=== PATIENT | female | born 1980 | race Caucasian/White ===

== ENCOUNTER 2018-01-09 19:41 | Emergency (ER) | payer BC ==
[2018-01-09 20:35] VITALS: BP 162/63
[2018-01-09] MEDS ORDERED: Ketorolac 60 MG/2 ML SDV IM ONE (20:47)
--- NOTE | 2018-01-09 20:48 | EDM.PDOC ---
ED HPI GENERAL MEDICAL PROBLEM - General Chief Complaint: Genitourinary Problem Stated Complaint: BLOOD IN URINE Time Seen by Provider: 01/09/18 20:40 Source of Information: Reports: Patient History Limitations: Reports: No Limitations - History of Present Illness INITIAL COMMENTS - FREE TEXT/NARRATIVE: HISTORY AND PHYSICAL: History of present illness: Patient is a 37-year-old female with complaints of dysuria, frequency, the sensation of being unable to fully empty her bladder and hematuria. She has had the symptoms for the last 2-3 days. She denies any fever, chills, chest pain, shortness of breath, nausea, vomiting, diarrhea or constipation. Review of systems: As per history of present illness and below otherwise all systems reviewed and negative. Past medical history: As per history of present illness and as reviewed below otherwise noncontributory. Surgical history: As per history of present illness and as reviewed below otherwise noncontributory. Social history: No reported history of drug or alcohol abuse. Family history: As per history of present illness and as reviewed below otherwise noncontributory. Physical exam: General: Developed and well-nourished 37-year-old female. Alert and oriented. Nontoxic appearing and in no acute distress. HEENT: Atraumatic, normocephalic, pupils equal and reactive bilaterally, negative for conjunctival pallor or scleral icterus, mucous membranes moist, throat clear, neck supple, nontender, trachea midline. No drooling or trismus noted. No meningeal signs Lungs: Clear to auscultation, breath sounds equal bilaterally, chest nontender. Heart: S1S2, regular rate and rhythm without overt murmur Abdomen: Soft, nondistended, nontender. Negative for masses or hepatosplenomegaly. Negative for costovertebral tenderness. Pelvis: Stable nontender. Genitourinary: Deferred. Rectal: Deferred. Skin: Intact, warm, dry. No lesions or rashes noted. Extremities: Atraumatic, negative for cords or calf pain. Neurovascular unremarkable. Neuro: Awake, alert, oriented. Cranial nerves II through XII unremarkable. Cerebellum unremarkable. Motor and sensory unremarkable throughout. Exam nonfocal. Notes: Patient does have some tenderness when pressing on the right side of the pelvic area I will get a CT to rule out a stone. I will treat her with Macrobid, Pyridium, and tramadol. CT shows no evidence of urinary tract colliculi or hydronephrosis. Diagnostics: UA, urine culture, CT abdomen and pelvis Therapeutics: IM Toradol Prescription: Macrobid twice a day 7 days Pyridium 3 times a day 2 days Tramadol (#15) Impression: UTI Plan: 1. Please take the medications as directed. 2. Increase your oral fluids. Tylenol and/or ibuprofen as needed for pain management.Tramadol as needed for moderate to sever pain. May cause drowsiness, so do not take while driving or needing to be functioning outside the house 3. Follow-up with your primary care provider in the next 1-2 days. Return to the ED as needed and as discussed. Definitive disposition and diagnosis as appropriate pending reevaluation and review of above. pelvic area Pain Score (Numeric/FACES): 10 - Related Data Allergies Allergy/AdvReac Type Severity Reaction Status Date / Time esomeprazole magnesium Allergy Mild Abdominal Verified 01/09/18 20:09 [From Nexium] Cramps Home Meds: Home Meds . 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: Musculoskeletal History: Reports: Neck Pain, Chronic Neurological History: Reports: Brain Injury, Concussion Psychiatric History: Reports: Anxiety, Depression Endocrine/Metabolic History: Reports: Osteoporosis, Other (See Below) Other Endocrine/Metabolic History: ovarian failure - Infectious Disease History Infectious Disease History: Reports: Chicken Pox - Past Surgical History HEENT Surgical History: Reports: Tonsillectomy GI Surgical History: Reports: Cholecystectomy, Hernia, Abdominal Female Surgical History: Reports: Section, Tubal Ligation Social & Family History - Tobacco Use Smoking Status *Q: Former Smoker Used Tobacco, but Quit: Yes Month/Year Tobacco Last Used: 2014 - Caffeine Use Caffeine Use: Reports: Tea - Recreational Drug Use Recreational Drug Use: No - Living Situation & Occupation Living situation: Reports: , with Family Occupation: Employed ED ROS GENERAL - Review of Systems Review Of Systems: ROS reveals no pertinent complaints other than HPI. ED EXAM, RENAL/ - Physical Exam Exam: See Below (See dictation) Course - Vital Signs Last Recorded V/S: Last Vital Signs Temp 97.8 F 01/09/18 20:07 Pulse 76 08/11/18 20:07 Resp 12 01/09/18 20:07 BP 162/63 H 01/09/18 20:34 Pulse Ox 97 01/09/18 20:07 - Orders/Labs/Meds Orders: Active Orders 24 hr Category Date Time Status Abdomen Pelvis wo Cont [CT] Stat Exams 01/09/18 20:46 Taken CULTURE URINE [RM] Stat Lab 01/09/18 19:55 Received Labs: Laboratory Tests 01/09/18 Range/Units 19:55 Urine Color YELLOW Urine Appearance BLOODY Urine pH 6.0 (5.0-8.0) Ur Specific [place] >= 1.030 (1.001-1.035) Urine Protein 100 (NEGATIVE) mg/dL Urine Glucose (UA) NEGATIVE (NEGATIVE) mg/dL Urine Ketones NEGATIVE (NEGATIVE) mg/dL Urine Occult Blood LARGE H (NEGATIVE) Urine Nitrite NEGATIVE (NEGATIVE) Urine Bilirubin NEGATIVE (NEGATIVE) Urine Urobilinogen 0.2 (<2.0) EU/dL Ur Leukocyte Esterase NEGATIVE (NEGATIVE) Urine RBC TOO NUMEROUS TO CT H (0-2/HPF) Urine WBC 1-2 (0-5/HPF) Ur Epithelial Cells FEW (NONE-FEW) Urine Bacteria FEW (NEGATIVE) Meds: Medications Discontinued Medications Generic Name Dose Route Start Last Admin Trade Name Ricardo PRN Reason Stop Dose Admin Ketorolac Tromethamine 60 mg 01/09/18 20:47 01/09/18 21:00 Toradol IM 01/09/18 20:48 60 mg ONETIME ONE Administration Phenazopyridine HCl 200 mg 01/09/18 20:50 01/09/18 21:00 Pyridium PO 01/09/18 20:51 200 mg ONETIME ONE Administration Departure - Departure Time of Disposition: 21:44 Disposition: Home, Self-Care 01 Clinical Impression: UTI, Urinary tract infectious disease - Discharge Information Instructions: Urinary Tract Infection, Adult, [id number] Referrals: PCP,None [Primary Care Provider] - Forms: ED Department Discharge Additional Instructions: The following information is given to patients seen in the emergency department who are being discharged to home. This information is to outline your options for follow-up care. We provide all patients seen in our emergency department with a follow-up referral. The need for follow-up, as well as the timing and circumstances, are variable depending upon the specifics of your emergency department visit. If you don't have a primary care physician on staff, we will provide you with a referral. We always advise you to contact your personal physician following an emergency department visit to inform them of the circumstance of the visit and for follow-up with them and/or the need for any referrals to a consulting specialist. The emergency department will also refer you to a specialist when appropriate. This referral assures that you have the opportunity for follow-up care with a specialist. All of these measure are taken in an effort to provide you with optimal care, which includes your follow-up. Under all circumstances we always encourage you to contact your private physician who remains a resource for coordinating your care. When calling for follow-up care, please make the office aware that this follow-up is from your recent emergency room visit. If for any reason you are refused follow-up, please contact the [facility] Emergency Department at and asked to speak to the emergency department charge nurse. [facility] [address] [place] [id number] 1. Please take the medications as directed. 2. Increase your oral fluids. Tylenol and/or ibuprofen as needed for pain management. Tramadol as needed for moderate to sever pain. May cause drowsiness , so do not take while driving or needing to be functioning outside the house 3. Follow-up with your primary care provider in the next 1-2 days. Return to the ED as needed and as discussed. - My Orders Last 24 Hours: My Active Orders 01/09/18 20:46 Abdomen Pelvis wo Cont [CT] Stat - Assessment/Plan Last 24 Hours: My Active Orders 01/09/18 20:46 Abdomen Pelvis wo Cont [CT] Stat
[2018-01-09] MEDS ORDERED: Phenazopyridine 200 MG Tab PO ONE (20:50)
[2018-01-09] MEDS ORDERED: Nitrofurantoin Monohydrate/Macrocrystalline 100 MG Cap PO ONE (21:46)
--- NOTE | 2018-01-11 17:38 | CT ---
EXAM DATE: 01/09/18 PATIENT'S AGE: 37 Patient: JOVITA MALCOLM Facility: [place], [place] Site . Site : [id number] Study: CT Abdomen/Pelvis [id number]/11/2018 9:15:11 PM Ordering Physician: Doctor Kaye Final Report: HISTORY: Abdominal pain. Hematuria. TECHNIQUE: CT abdomen and pelvis without contrast. COMPARISON: None. FINDINGS: Urinary system: No urinary tract calculi. No hydronephrosis or perinephric stranding. Abdomen: Cholecystectomy. Unenhanced liver, pancreas, spleen, and adrenal glands are unremarkable. Small calcification along the posteromedial margin of the right lobe of the liver. No dilated bowel. Appendix is normal. No free fluid. No free intraperitoneal gas. No lymphadenopathy. Mild atherosclerosis. No abdominal aortic aneurysm. Pelvis: No free fluid. No lymphadenopathy. Musculoskeletal: Unremarkable. Lower chest: Unremarkable. IMPRESSION: No acute findings in the abdomen or pelvis. No urinary tract calculi. Please note that all CT scans at this facility use dose modulation, iterative reconstruction, and/or weight-based dosing when appropriate to reduce radiation dose to as low as reasonably achievable. Dictated by Tien Mabry MD @ Jan 09 2018 9:36PM (Electronic Signature) Report Signed by Proxy. SUSAND
== END 2018-01-09 22:15 | disposition home or self-care (01) ==
LOC: MW.ED 19:41
DX: N39.0 Urinary tract infection, site not specified (principal); K21.9 Gastro-esophageal reflux disease without esophagitis; F41.9 Anxiety disorder, unspecified; F32.9 Major depressive disorder, single episode, unspecified; Z87.891 Personal history of nicotine dependence; Z88.8 Allergy status to other drugs, medicaments and biological substances
CPT/HCPCS: 74176; 81001; 87086; 87088; 87186; 96372; 99284; A9270; J1885

== ENCOUNTER 2018-09-03 13:54 | Emergency (ER) | payer BC ==
[2018-09-03] MEDS ORDERED: Sodium Chloride 0.9% 1,000 ML IV ONE (14:11)
--- NOTE | 2018-09-03 14:39 | EDM.PDOC ---
ED HPI GENERAL MEDICAL PROBLEM - General Chief Complaint: General Stated Complaint: fall Time Seen by Provider: 09/03/18 13:55 Source of Information: Reports: Patient History Limitations: Reports: No Limitations - History of Present Illness INITIAL COMMENTS - FREE TEXT/NARRATIVE: HISTORY AND PHYSICAL: History of present illness: Patient is a 38-year-old female who presents to the ED today with concern of syncope that occurred just minutes prior to arrival to the ED. 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 Patient is unsure if she hit her head but she says she does have a scrape to her right knee. Patient states currently the ED she feels a little lightheaded and dizzy which is worse when she sits up or stands up. Patient states the scrape on her knee hurts but she has full range of motion of her knee. Patient denies any other injuries that are bothersome in the ED. Patient denies fever, chills, chest pain, shortness of breath, or cough. Denies headache, neck stiff ness, change in vision. Denies nausea, vomiting, abdominal pain, diarrhea, constipation, or dysuria. Has not noted any blood in urine or stool. Patient has been eating and drinking appropriately. Patient has a history of ovarian failure but denies any other health history. Review of systems: As per history of present illness and below otherwise all systems reviewed and negative. Past medical history: As per history of present illness and as reviewed below otherwise noncontributory. Surgical history: As per history of present illness and as reviewed below otherwise noncontributory. Social history: See social history for further information Family history: As per history of present illness and as reviewed below otherwise noncontributory. Physical exam: General: Patient is alert, oriented, and in no acute distress. She is lying comfortably on exam table. HEENT: Atraumatic, normocephalic, pupils equal and reactive bilaterally, negative for conjunctival pallor or scleral icterus, mucous membranes moist, TMs normal bilaterally, throat clear, neck supple, nontender, trachea midline. No drooling or trismus noted. No meningeal signs. No hot potato voice noted. EOM intact. Lungs: Clear to auscultation, breath sounds equal bilaterally, chest nontender. Heart: S1S2, regular rate and rhythm without overt murmur Abdomen: Soft, nondistended, nontender. Negative for masses or hepatosplenomegaly. Negative for costovertebral tenderness. Pelvis: Stable nontender. Genitourinary: Deferred. Rectal: Deferred. Skin: There is an abrasion about the size of a quarter on the right knee with minimal blood loss. Extremities: Atraumatic, negative for cords or calf pain. Neurovascular unremarkable. Patient has full range of motion of knees bilaterally. Dorsalis pedis and posterior tibial pulses are grossly intact. Capillary refill less than 2 seconds. No obvious deformities noted of the knees bilaterally. Neuro: Awake, alert, oriented. Cranial nerves II through XII unremarkable. Cerebellum unremarkable. Motor and sensory unremarkable throughout. Exam nonfocal. Notes: Will do labwork and imaging today. Patient declines imaging to her knee. Head CT shows no acute intracranial abnormalities. Results shared and discussed with patient. Patient states she normally feels dizzy following administration of saline. Offered admission for observation but patient declines. Supportive care measures were reviewed and discussed. Voices understanding and is agreeable to plan of care. Denies any further questions or concerns at this time. Diagnostics: CBC, CMP, EKG, UA, orthostatic vitals, head CT Therapeutics: Saline Prescription: None Impression: Syncope, unspecified Knee injury, right Plan: 1. Encourage frequent sips of fluids to prevent dehydration. You can alternate ibuprofen and Tylenol as directed for pain and discomfort. 2. Follow-up with your primary care provider as discussed. 3. Return to the ED as needed and as discussed. Definitive disposition and diagnosis as appropriate pending reevaluation and review of above. right knee Pain Score (Numeric/FACES): 5 - Related Data Allergies Allergy/AdvReac Type Severity Reaction Status Date / Time esomeprazole magnesium Allergy Mild Abdominal Verified 01/09/18 20:09 [From Nexium] Cramps Home Meds: Home Meds Cholecalciferol (Vitamin D3) [Vitamin D] 5,000 unit PO DAILY 09/03/18 [History] Citalopram [Citalopram HBr] 20 mg PO DAILY 09/03/18 [History] Cyanocobalamin (Vitamin B-12) [B-12 Compliance] 1 mcg IM ASDIRECTED 09/03/18 [ History] Estradiol [Climara] 0.05 mg TOP WEEKLY 09/03/18 [History] Multivit with Calcium,Iron,Min [One Daily Women's] 1 tab PO DAILY 09/03/18 [ History] Multivit with Iron,Minerals [Spectravite Senior] 09/03/18 [History] Omeprazole 40 mg PO DAILY 09/03/18 [History] Progesterone,Micronized [Progesterone] 100 mg PO DAILY 09/03/18 [History] Past Medical History Other HEENT History: TMJ Respiratory History: Reports: Asthma Gastrointestinal History: Reports: GERD Genitourinary History: Reports: Other (See Below) 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: , Other (See Below) 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 Musculoskeletal History: Reports: Neck Pain, Chronic Neurological History: Reports: Brain Injury, Concussion Psychiatric History: Reports: Anxiety, Depression Endocrine/Metabolic History: Reports: Osteoporosis, Other (See Below) Other Endocrine/Metabolic History: ovarian failure - Infectious Disease History Infectious Disease History: Reports: Chicken Pox - Past Surgical History HEENT Surgical History: Reports: Tonsillectomy GI Surgical History: Reports: Cholecystectomy, Colonoscopy, EGD, Hernia, Abdominal Female Surgical History: Reports: Section, Tubal Ligation Social & Family History - Family History Family Medical History: Noncontributory - Tobacco Use Smoking Status *Q: Never Smoker - Caffeine Use Caffeine Use: Reports: Tea - Recreational Drug Use Recreational Drug Use: No - Living Situation & Occupation Living situation: Reports: , with Family Occupation: Employed ED ROS GENERAL - Review of Systems Review Of Systems: ROS reveals no pertinent complaints other than HPI. ED EXAM, GENERAL - Physical Exam Exam: See Below (see dictation) Course - Vital Signs Last Recorded V/S: Last Vital Signs Temp 36.6 C 09/03/18 14:04 Pulse 80 09/03/18 14:04 Resp 18 09/03/18 14:04 BP 127/79 09/03/18 14:04 Pulse Ox 96 09/03/18 14:04 Orthostatic Blood Pressure [ 119/72 Standing] Orthostatic Blood Pressure [ 132/73 Sitting] Orthostatic Blood Pressure [ 124/74 Supine] - Orders/Labs/Meds Orders: Active Orders 24 hr Category Date Time Status EKG Documentation Completion [RC] STAT Care 09/03/18 14:11 Active Orthostatic Vital Signs [RC] ASDIRECTED Care 09/03/18 14:11 Active Labs: Laboratory Tests 09/03/18 09/03/18 09/03/18 Range/Units 14:31 14:31 15:12 WBC 9.41 (4.0-11.0) K/uL RBC 4.38 (4.30-5.90) M/uL Hgb 13.8 (12.0-16.0) g/dL Hct 39.4 (36.0-46.0) % MCV 90.0 (80.0-98.0) fL MCH 31.5 (27.0-32.0) pg MCHC 35.0 (31.0-37.0) g/dL RDW Std Deviation 39.4 (28.0-62.0) fl RDW Coeff of Crystal 12 (11.0-15.0) % Plt Count 290 (150-400) K/uL MPV 10.10 (7.40-12.00) fL Neut % (Auto) 67.6 (48.0-80.0) % Lymph % (Auto) 19.9 (16.0-40.0) % [place]ke % (Auto) 11.8 (0.0-15.0) % Eos % (Auto) 0.5 (0.0-7.0) % Baso % (Auto) 0.2 (0.0-1.5) % Neut # (Auto) 6.4 H (1.4-5.7) K/uL Lymph # (Auto) 1.9 (0.6-2.4) K/uL [place] # (Auto) 1.1 H (0.0-0.8) K/uL Eos # (Auto) 0.1 (0.0-0.7) K/uL Baso # (Auto) 0.0 (0.0-0.1) K/uL Nucleated RBC % 0.0 /100WBC Nucleated RBCs # 0 K/uL Sodium 141 (136-145) mmol/L Potassium 3.6 (3.5-5.1) mmol/L Chloride 103 (98-107) mmol/L Carbon Dioxide 29.3 (21.0-32.0) mmol/L BUN 16 (7.0-18.0) mg/dL Creatinine 0.9 (0.6-1.0) mg/dL Est Cr Clr Drug Dosing 63.95 mL/min Estimated GFR (MDRD) > 60.0 ml/min Glucose 108 H (74-106) mg/dL Calcium 8.9 (8.5-10.1) mg/dL Total Bilirubin 1.1 H (0.2-1.0) mg/dL AST 14 L (15-37) IU/L ALT 27 (14-63) IU/L Alkaline Phosphatase 63 (46-116) U/L Total Protein 7.5 (6.4-8.2) g/dL Albumin 3.7 (3.4-5.0) g/dL Globulin 3.8 (2.6-4.0) g/dL Albumin/Globulin Ratio 1.0 (0.9-1.6) Urine Color YELLOW Urine Appearance CLEAR Urine pH 6.0 (5.0-8.0) Ur Specific [place] 1.025 (1.001-1.035) Urine Protein NEGATIVE (NEGATIVE) mg/dL Urine Glucose (UA) NEGATIVE (NEGATIVE) mg/dL Urine Ketones NEGATIVE (NEGATIVE) mg/dL Urine Occult Blood NEGATIVE (NEGATIVE) Urine Nitrite NEGATIVE (NEGATIVE) Urine Bilirubin NEGATIVE (NEGATIVE) Urine Urobilinogen 0.2 (<2.0) EU/dL Ur Leukocyte Esterase NEGATIVE (NEGATIVE) Meds: Medications Discontinued Medications Generic Name Dose Route Start Last Admin Trade Name Ricardo PRN Reason Stop Dose Admin Sodium Chloride 1,000 mls @ 999 mls/hr 09/03/18 14:11 09/03/18 14:40 Normal Saline IV 09/03/18 15:11 999 mls/hr STAT ONE Administration Departure - Departure Time of Disposition: 15:49 Disposition: Home, Self-Care 01 Clinical Impression: Syncope Qualifiers: Syncope type: unspecified Qualified Code(s): R55 - Syncope and collapse - Discharge Information Instructions: Syncope, [id number] Referrals: PCP,Unknown [Primary Care Provider] - Forms: ED Department Discharge Additional Instructions: The following information is given to patients seen in the emergency department who are being discharged to home. This information is to outline your options for follow-up care. We provide all patients seen in our emergency department with a follow-up referral. The need for follow-up, as well as the timing and circumstances, are variable depending upon the specifics of your emergency department visit. If you don't have a primary care physician on staff, we will provide you with a referral. We always advise you to contact your personal physician following an emergency department visit to inform them of the circumstance of the visit and for follow-up with them and/or the need for any referrals to a consulting specialist. The emergency department will also refer you to a specialist when appropriate. This referral assures that you have the opportunity for follow-up care with a specialist. All of these measure are taken in an effort to provide you with optimal care, which includes your follow-up. Under all circumstances we always encourage you to contact your private physician who remains a resource for coordinating your care. When calling for follow-up care, please make the office aware that this follow-up is from your recent emergency room visit. If for any reason you are refused follow-up, please contact the [facility] Emergency Department at and asked to speak to the emergency department charge nurse. [facility] [address] [place] [id number] [facility] [address] [place] [address] 1. Encourage frequent sips of fluids to prevent dehydration. You can alternate ibuprofen and Tylenol as directed for pain and discomfort. 2. Follow-up with your primary care provider as discussed. 3. Return to the ED as needed and as discussed. - My Orders Last 24 Hours: My Active Orders 09/03/18 14:11 EKG Documentation Completion [RC] STAT Orthostatic Vital Signs [RC] ASDIRECTED - Assessment/Plan Last 24 Hours: My Active Orders 09/03/18 14:11 EKG Documentation Completion [RC] STAT Orthostatic Vital Signs [RC] ASDIRECTED
--- NOTE | 2018-09-03 14:50 | CT ---
EXAMINATION: Non contrast CT head. Coronal and sagittal reformats. HISTORY: Pain FINDINGS: No evidence of intra or extra axial hemorrhage, mass, midline shift, hydrocephalus or edema. No hypoattenuation changes in the major vascular territories to suggest acute infarct. No abnormal intracranial calcifications are detected. No evidence of substantial vascular calcifications. Paranasal sinuses and mastoid air cells are well aerated without substantial findings. Pituitary fossa appears unremarkable. The orbits and globes are symmetric. Calvarium is intact. No evidence of skull fracture. IMPRESSION: No acute intracranial findings.
[2018-09-03 15:15] LABS: CHLORIDE,CL 103 mmol/L (98-107); SODIUM,NA 141 mmol/L (136-145)
[2018-09-03 18:45] VITALS: BP 122/65
== END 2018-09-03 16:05 | disposition home or self-care (01) ==
LOC: MW.ED 13:54
DX: S80.211A Abrasion, right knee, initial encounter (principal); R55 Syncope and collapse; J45.909 Unspecified asthma, uncomplicated; K21.9 Gastro-esophageal reflux disease without esophagitis; F41.9 Anxiety disorder, unspecified; F32.9 Major depressive disorder, single episode, unspecified; Z88.8 Allergy status to other drugs, medicaments and biological substances; Z79.899 Other long term (current) drug therapy; W18.39XA Other fall on same level, initial encounter
CPT/HCPCS: 36415; 70450; 80053; 81003; 85025; 93005; J7040; 96360; 99285-25

== ENCOUNTER 2018-09-05 13:27 | Emergency (ER) | payer BC ==
--- NOTE | 2018-09-05 15:33 | EDM.PDOC ---
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 She was evaluated by Dr. Pari Lovett pelvic exam and ultrasound which were both negative. Patient Feels very weak and tired Review of systems: As per history of present illness and below otherwise all systems reviewed and negative. Past medical history: As per history of present illness and as reviewed below otherwise noncontributory. Surgical history: As per history of present illness and as reviewed below otherwise noncontributory. Social history: No reported history of drug or alcohol abuse. Family history: As per history of present illness and as reviewed below otherwise noncontributory. Physical exam: General: Well developed, well nourished in NAD HEENT: Atraumatic, normocephalic, pupils reactive, negative for conjunctival pallor or scleral icterus, mucous membranes moist, throat clear, neck supple, nontender, trachea midline. Lungs: Clear to auscultation, breath sounds equal bilaterally, chest nontender. Heart: S1S2, regular, negative for clicks, rubs, or JVD. Abdomen: NABS, Soft, nondistended, nontender. Negative for masses or hepatosplenomegaly. Negative for costovertebral tenderness. Pelvis: Stable nontender. Genitourinary: Deferred. Rectal: Deferred. Extremities: Atraumatic, negative for cords or calf pain. Neurovascular unremarkable. Neuro: Awake, alert, oriented. Cranial nerves II through XII unremarkable. Cerebellum unremarkable. Motor and sensory unremarkable throughout. Exam nonfocal. Skin:warm and dry Diagnostics: CBC, UA Therapeutics: None ED Course: stable Impression: yeast infection Prescriptions: diflucan Plan: Take meds as directed, follow up with your primary care physician, return to ER if symptoms worsen or change. Definitive disposition and diagnosis as appropriate pending reevaluation and review of above. Pelvic Pain Score (Numeric/FACES): 6 - Related Data Allergies Allergy/AdvReac Type Severity Reaction Status Date / Time esomeprazole magnesium Allergy Mild Abdominal Verified 09/05/18 14:21 [From Nexium] Cramps Home Meds: Home Meds Cholecalciferol (Vitamin D3) [Vitamin D] 5,000 unit PO DAILY 09/03/18 [History] Citalopram [Citalopram HBr] 20 mg PO DAILY 09/03/18 [History] Cyanocobalamin (Vitamin B-12) [B-12 Compliance] 1 mcg IM ASDIRECTED 09/03/18 [ History] Estradiol [Climara] 0.05 mg TOP WEEKLY 09/03/18 [History] Multivit with Calcium,Iron,Min [One Daily Women's] 1 tab PO DAILY 09/03/18 [ History] Multivit with Iron,Minerals [Spectravite Senior] 1 tab PO DAILY 09/03/18 [ History] Omeprazole 40 mg PO DAILY 09/03/18 [History] Progesterone,Micronized [Progesterone] 100 mg PO DAILY 09/03/18 [History] Fluconazole [Diflucan] 150 mg PO ONETIME #1 tab 09/05/18 [Rx] Past Medical History Other HEENT History: TMJ Respiratory History: Reports: Asthma Gastrointestinal History: Reports: GERD Genitourinary History: Reports: Other (See Below) 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 PADDER History: Reports: , Other (See Below) Other SIDE PANEL PADDER History: c-sections Musculoskeletal History: Reports: Neck Pain, Chronic Neurological History: Reports: Brain Injury, Concussion Psychiatric History: Reports: Anxiety, Depression Endocrine/Metabolic History: Reports: Osteoporosis, Other (See Below) Other Endocrine/Metabolic History: ovarian failure - Infectious Disease History Infectious Disease History: Reports: Chicken Pox - Past Surgical History HEENT Surgical History: Reports: Tonsillectomy GI Surgical History: Reports: Cholecystectomy, Colonoscopy, EGD, Hernia, Abdominal Female Surgical History: Reports: Section, Tubal Ligation Social & Family History - Family History Family Medical History: Noncontributory - Tobacco Use Smoking Status *Q: Former Smoker Used Tobacco, but Quit: Yes Month/Year Tobacco Last Used: 2013 - Caffeine Use Caffeine Use: Reports: Coffee - Recreational Drug Use Recreational Drug Use: No - Living Situation & Occupation Living situation: Reports: , with Family Occupation: Employed ED ROS GENERAL - Review of Systems Review Of Systems: ROS reveals no pertinent complaints other than HPI. ED EXAM, RENAL/ - Physical Exam Exam: See Below (See history of present illness) Course - Vital Signs Last Recorded V/S: Last Vital Signs Temp 98.4 F 09/05/18 14:22 Pulse 102 H 09/05/18 14:22 Resp 18 09/05/18 14:22 BP 163/91 H 09/05/18 14:22 Pulse Ox 98 09/05/18 14:22 - Orders/Labs/Meds Labs: Laboratory Tests 09/05/18 09/05/18 09/05/18 Range/Units 14:26 14:26 15:49 WBC 9.05 (4.0-11.0) K/uL RBC 4.26 L (4.30-5.90) M/uL Hgb 13.4 (12.0-16.0) g/dL Hct 38.6 (36.0-46.0) % MCV 90.6 (80.0-98.0) fL MCH 31.5 (27.0-32.0) pg MCHC 34.7 (31.0-37.0) g/dL RDW Std Deviation 40.0 (28.0-62.0) fl RDW Coeff of Crystal 12 (11.0-15.0) % Plt Count 267 (150-400) K/uL MPV 9.90 (7.40-12.00) fL Neut % (Auto) 62.4 (48.0-80.0) % Lymph % (Auto) 26.2 (16.0-40.0) % [place] % (Auto) 10.4 (0.0-15.0) % Eos % (Auto) 0.8 (0.0-7.0) % Baso % (Auto) 0.2 (0.0-1.5) % Neut # (Auto) 5.7 (1.4-5.7) K/uL Lymph # (Auto) 2.4 (0.6-2.4) K/uL [place] # (Auto) 0.9 H (0.0-0.8) K/uL Eos # (Auto) 0.1 (0.0-0.7) K/uL Baso # (Auto) 0.0 (0.0-0.1) K/uL Nucleated RBC % 0.0 /100WBC Nucleated RBCs # 0 K/uL Urine Color YELLOW Urine Appearance CLEAR Urine pH 7.0 (5.0-8.0) Ur Specific [place] 1.020 (1.001-1.035) Urine Protein NEGATIVE (NEGATIVE) mg/dL Urine Glucose (UA) NEGATIVE (NEGATIVE) mg/dL Urine Ketones NEGATIVE (NEGATIVE) mg/dL Urine Occult Blood LARGE H (NEGATIVE) Urine Nitrite NEGATIVE (NEGATIVE) Urine Bilirubin NEGATIVE (NEGATIVE) Urine Urobilinogen 0.2 (<2.0) EU/dL Ur Leukocyte Esterase NEGATIVE (NEGATIVE) Urine RBC 0-3 (0-2/HPF) Urine WBC 0-1 (0-5/HPF) Ur Epithelial Cells MODERATE (NONE-FEW) Urine Bacteria FEW (NEGATIVE) Urine Yeast MODERATE Urine HCG, Qual NEGATIVE (NEGATIVE) Departure - Departure Time of Disposition: 16:09 Disposition: Home, Self-Care 01 Condition: Good Clinical Impression: Yeast infection - Discharge Information *PRESCRIPTION DRUG MONITORING PROGRAM REVIEWED*: No *COPY OF PRESCRIPTION DRUG MONITORING REPORT IN PATIENT LUCIA: No Prescriptions: Fluconazole [Diflucan] 150 mg PO ONETIME #1 tab Referrals: Evert Drew MD [Primary Care Provider] - Forms: ED Department Discharge Additional Instructions: The following information is given to patients seen in the emergency department who are being discharged to home. This information is to outline your options for follow-up care. We provide all patients seen in our emergency department with a follow-up referral. The need for follow-up, as well as the timing and circumstances, are variable depending upon the specifics of your emergency department visit. If you don't have a primary care physician on staff, we will provide you with a referral. We always advise you to contact your personal physician following an emergency department visit to inform them of the circumstance of the visit and for follow-up with them and/or the need for any referrals to a consulting specialist. The emergency department will also refer you to a specialist when appropriate. This referral assures that you have the opportunity for follow-up care with a specialist. All of these measure are taken in an effort to provide you with optimal care, which includes your follow-up. Under all circumstances we always encourage you to contact your private physician who remains a resource for coordinating your care. When calling for follow-up care, please make the office aware that this follow-up is from your recent emergency room visit. If for any reason you are refused follow-up, please contact the [facility] Emergency Department at and asked to speak to the emergency department charge nurse. Take meds as directed, follow up with your primary care physician, return to ER if symptoms worsen or change. [facility] [address] [place] [id number]
[2018-09-05 18:00] VITALS: BP 120/60
== END 2018-09-05 16:48 | disposition home or self-care (01) ==
LOC: MW.ED 13:27
DX: B37.9 Candidiasis, unspecified (principal); J45.909 Unspecified asthma, uncomplicated; K21.9 Gastro-esophageal reflux disease without esophagitis; F41.9 Anxiety disorder, unspecified; F32.9 Major depressive disorder, single episode, unspecified; Z87.891 Personal history of nicotine dependence; Z88.8 Allergy status to other drugs, medicaments and biological substances; Z79.899 Other long term (current) drug therapy
CPT/HCPCS: 36415; 81001; 81025; 85025; 99284

== ENCOUNTER 2018-10-12 07:44 | Day surgery (SDC) | payer BC ==
[~2018-10-12 07:44] MED LIST: Dexamethasone 4 MG/ML 5 ML MDV ONE; Glycopyrrolate 0.2 MG/ML SDV ONE; Midazolam 1 MG/ML 2 ML SDV ONE; Neostigmine Methylsulfate 1 MG/ML 5 ML Syringe ONE; Ondansetron 4 MG/2 ML SDV ONE; Propofol 200 MG/20 ML SDV ONE; Rocuronium 100 MG/10 ML Syringe ONE; ceFAZolin/Dextrose,Iso-Osmotic 2 GM/50 ML Duplex Bag IV ONE; fentaNYL 250 MCG/5 ML SDV ONE
[2018-10-12] MEDS ORDERED: Methylene Blue 50 MG/10 ML Ampule ONE (07:47)
[2018-10-12] MEDS ORDERED: Bupivacaine 0.25% 10 ML SDV ONE (07:48)
[2018-10-12] MEDS ORDERED: Scopolamine 1.5 MG Transdermal Patch TRDERM PRN (08:28)
--- NOTE | 2018-10-12 08:31 | PCM.PREANE ---
Preanesthetic Assessment - Anesthesia/Transfusion/Family Hx Anesthesia History: Prior Anesthesia Without Reaction Family History of Anesthesia Reaction: No Transfusion History: No Prior Transfusion(s) - Review of Systems General: No Symptoms Pulmonary: No Symptoms Cardiovascular: No Symptoms Gastrointestinal: No Symptoms Neurological: No Symptoms Other: Reports: None - Physical Assessment O2 Sat by Pulse Oximetry: 97 Respiratory Rate: 16 Vital Signs: Last Vital Signs Temp 96.8 F 10/12/18 08:01 Pulse 88 10/12/18 08:01 Resp 16 10/12/18 08:01 BP 126/77 10/12/18 08:01 Pulse Ox 97 10/12/18 08:01 Height: 5 ft 2 in Weight: 70.307 kg ASA Class: 2 Mental Status: Alert & Oriented x3 Airway Class: Mallampati = 2 Dentition: Reports: Normal Dentition ROM/Head Extension: Full Lungs: Clear to Auscultation, Normal Respiratory Effort Cardiovascular: Regular Rate, Regular Rhythm - Allergies Allergies/Adverse Reactions: Allergies Allergy/AdvReac Type Severity Reaction Status Date / Time esomeprazole magnesium Allergy Mild Abdominal Verified 10/12/18 08:10 [From Nexium] Cramps - Blood Blood Available: No - Anesthesia Plan Pre-Op Medication Ordered: Other (sscop patch) - Acknowledgements Anesthesia Type Planned: General Anesthesia Pt an Appropriate Candidate for the Planned Anesthesia: Yes Alternatives and Risks of Anesthesia Discussed w Pt/Guardian: Yes Pt/Guardian Understands and Agrees with Anesthesia Plan: Yes Additional Comments: PMH: asthma-inactive recently, migraines- used tramadol prn, gerd- last used PPi this am, Hb 13.4 PLAN: GET PreAnesthesia Questionnaire HEENT History: Reports: Other (See Below) Other HEENT History: TMJ Cardiovascular History: Reports: None Respiratory History: Reports: Asthma Other Respiratory History: "asthma in the past" Gastrointestinal History: Reports: GERD Genitourinary History: Reports: UTI, Recurrent HEMODIALYSIS PATIENT CARE SPECIALIST History: Reports: Musculoskeletal History: Reports: Back Pain, Chronic, Neck Pain, Chronic Neurological History: Reports: Concussion, Migraines Psychiatric History: Reports: Anxiety, Depression Endocrine/Metabolic History: Reports: Osteopenia, Other (See Below) Other Endocrine/Metabolic History: hx thyroid nodule-biopsy negative Hematologic History: Reports: Anemia Immunologic History: Reports: None Oncologic (Cancer) History: Reports: None Dermatologic History: Reports: None - Infectious Disease History Infectious Disease History: Reports: Chicken Pox - Past Surgical History Head Surgeries/Procedures: Reports: None HEENT Surgical History: Reports: Adenoidectomy, Tonsillectomy Respiratory Surgical History: Reports: None GI Surgical History: Reports: Cholecystectomy, Colonoscopy, EGD, Hernia, Abdominal Female Surgical History: Reports: Section, Tubal Ligation Other Female Surgeries/Procedures: laparoscopy x2 Endocrine Surgical History: Reports: None Neurological Surgical History: Reports: None Musculoskeletal Surgical History: Reports: None Oncologic Surgical History: Reports: None Dermatological Surgical History: Reports: None - SUBSTANCE USE Smoking Status *Q: Former Smoker Tobacco Use Within Last Twelve Months: No Recreational Drug Use History: No - HOME MEDS Home Medications: Home Meds Cyanocobalamin (Vitamin B-12) [B-12 Compliance] 1 injection IM ASDIRECTED [History] Estradiol [Climara] 1 patch TRDERM WEEKLY 09/03/18 [History] Omeprazole 40 mg PO DAILY 09/03/18 [History] Progesterone,Micronized [Progesterone] 100 mg PO BEDTIME 09/03/18 [History] Ergocalciferol (Vitamin D2) [Vitamin D2] 50,000 units PO WEEKLY 10/07/18 [ History] Ibuprofen 1 tab PO TID PRN 10/07/18 [History] Multivitamin [Multivitamins] 1 tab PO DAILY 10/07/18 [History] Naproxen 1 tab PO ASDIRECTED PRN 10/07/18 [History] traMADol HCl [Tramadol HCl] 50 mg PO ASDIRECTED PRN 10/07/18 [History] - CURRENT (IN HOUSE) MEDS Current Meds: Current Medications Scopolamine (Transderm-Scop) 1.5 mg TRDERM Q72H PRN PRN Reason: Nausea/Vomiting Discontinued Medications Bupivacaine HCl (Sensorcaine-Mpf 0.25%) Confirm Administered Dose 20 ml .ROUTE .STK-MED ONE Stop: 10/12/18 07:49 Cefazolin Sodium/Dextrose (Ancef) Confirm Administered Dose 2 gm IV .STK-MED ONE Stop: 10/12/18 07:10 Dexamethasone (Dexamethasone) Confirm Administered Dose 20 mg .ROUTE .STK-MED ONE Stop: 10/12/18 07:20 Fentanyl (Sublimaze) Confirm Administered Dose 250 mcg .ROUTE .STK-MED ONE Stop: 10/12/18 07:11 Glycopyrrolate (Robinul) Confirm Administered Dose 0.6 mg .ROUTE .STK-MED ONE Stop: 10/12/18 07:25 Lidocaine HCl (Xylocaine-Mpf 1%) Confirm Administered Dose 5 mls @ as directed .ROUTE .STK-MED ONE Stop: 10/12/18 07:20 Acetaminophen (Ofirmev) Confirm Administered Dose 100 mls @ as directed IV .STK- MED ONE Stop: 10/12/18 07:46 Methylene Blue (Provayblue) Confirm Administered Dose 50 mg .ROUTE .STK-MED ONE Stop: 10/12/18 07:48 Midazolam HCl (Versed 1 Mg/Ml) Confirm Administered Dose 2 mg .ROUTE .STK-MED ONE Stop: 10/12/18 07:11 Neostigmine Methylsulfate (Neostigmine) Confirm Administered Dose 5 mg .ROUTE .STK-MED ONE Stop: 10/12/18 07:25 Ondansetron HCl (Zofran) Confirm Administered Dose 4 mg .ROUTE .STK-MED ONE Stop: 10/12/18 07:20 Propofol (Diprivan 20 Ml) Confirm Administered Dose 200 mg .ROUTE .STK-MED ONE Stop: 10/12/18 07:11 Rocuronium [place] (Zemuron) Confirm Administered Dose 100 mg .ROUTE .STK-MED ONE Stop: 10/12/18 07:20 Succinylcholine Chloride (Succinylcholine Chloride) Confirm Administered Dose 200 mg .ROUTE .STK-MED ONE Stop: 10/12/18 07:20
[2018-10-12] MEDS ORDERED: Fluorescein 5 ML Vial ONE (08:35)
[2018-10-12] MEDS ORDERED: Furosemide 40 MG/4 ML VIAL ONE (08:38)
[2018-10-12] MEDS ORDERED: Sodium Chloride 0.9% 10 ML SDV IV PRN (08:50)
[2018-10-12] MEDS ORDERED: Sodium Chloride 0.9% 10 ML Syringe FLUSH PRN (08:50)
[2018-10-12] MEDS ORDERED: Sodium Chloride 0.9% 2.5 ML Syringe FLUSH PRN (08:50)
[2018-10-12] MEDS ORDERED: Lactated Ringers 1,000 ML IV SCH (09:00)
[2018-10-12 09:14] LABS: CHLORIDE,CL 106 mmol/L (98-107); SODIUM,NA 144 mmol/L (136-145)
[2018-10-12] MEDS ORDERED: Vasopressin 20 Units/1 ML MDV ONE (09:19)
[2018-10-12] MEDS ORDERED: HYDROmorphone 2 MG/ML Syringe ONE ×2 (09:52→11:59)
[2018-10-12] MEDS ORDERED: Sodium Chloride 0.9% 20 ML ONE (09:53)
[2018-10-12] MEDS ORDERED: fentaNYL 100 MCG/2 ML SDV IVPUSH PRN (10:31)
[2018-10-12] MEDS ORDERED: Ketorolac 30 MG/ML SDV ONE (11:30)
[2018-10-12] MEDS ORDERED: fentaNYL 100 MCG/2 ML SDV ONE (11:52)
[2018-10-12] MEDS ORDERED: Gelatin Sponge,Absorbable 12-7 mm Sponge TOP ONE (11:58)
--- NOTE | 2018-10-12 12:43 | PCM.OPNOTE ---
- General Post-Op/Procedure Note Date of Surgery/Procedure: 10/12/18 Operative Procedure(s): LAVH/BSO and cystoscopy Findings: Normal appearing uterus and ovaries Pre Op Diagnosis: Abnormal Uterine bleeding. History of Premature ovarian failure Post-Op Diagnosis: Abnormal uterine bleeding. Hx of Premature ovarian failure Anesthesia Technique: General ET Tube Primary Surgeon: Anival Oshea Secondary Surgeon: Alyce Cedillo Pathology: Uterus , cervix , Tubes and ovaries Fluid Replacement, Intraop: 1,700 Output, Urine Amount: 150 EBL in mLs: 100 Complications: None Condition: Good
[2018-10-12] MEDS ORDERED: Ondansetron 4 MG/2 ML SDV IVPUSH PRN (12:44)
[2018-10-12] MEDS ORDERED: Acetaminophen/oxyCODONE 325-5 MG Tab PO PRN (12:44)
[2018-10-12] MEDS ORDERED: Morphine 4 MG/ML Syringe IVPUSH PRN (12:44)
[2018-10-12] MEDS ORDERED: Promethazine 25 MG/ML SDV IM PRN (12:44)
[2018-10-12] MEDS ORDERED: Ketorolac 30 MG/ML SDV IVPUSH PRN (12:44)
[2018-10-12] MEDS ORDERED: Ketorolac 30 MG/ML SDV IVPUSH ONE (12:44)
[2018-10-12] MEDS ORDERED: Metoclopramide 10 MG/2 ML SDV IVPUSH SCH (13:00)
[2018-10-12] MEDS ORDERED: Acetaminophen 1,000 MG in Premix Bag 1 BAG IV SCH (13:00)
--- NOTE | 2018-10-12 14:41 | PCM.POSTAN ---
POST ANESTHESIA ASSESSMENT - MENTAL STATUS Mental Status: Alert, Oriented - RESPIRATORY Respiratory Status: Respiratory Rate WNL, Airway Patent, O2 Saturation Stable - CARDIOVASCULAR CV Status: Pulse Rate WNL, Blood Pressure Stable - GASTROINTESTINAL GI Status: No Symptoms - POST OP HYDRATION Hydration Status: Adequate & Stable - OBSERVATIONS Free Text/Narrative:: patient has demonstrated significant pain/sedation mismatch. When medicated to the point of comfor she is excessively sedated. This patient should have non narcotic analgesics like iv tylenol and toradol, supplemented with as little narcotic as needed to acheive moderate but not complete analgesia. This should be done in an environment with continuous SPO2 monitoring, and continuous nasal oxygen. Desaturations below 92% that do not immediately correct with verbal stimulation should result in calling the rapid response team for intervention. If this monitoring is not available in the OB floor, then I recommend that she be observed in the ICU overnight. Central monitoring is essential,
[2018-10-12] MEDS: Acetaminophen/oxyCODONE 325-5 MG Tab PO PRN ×2 (17:20→22:31)
[2018-10-12] MEDS: Acetaminophen 1,000 MG in Premix Bag 1 BAG IV SCH (21:07)
[2018-10-12] MEDS: Metoclopramide 10 MG/2 ML SDV IVPUSH SCH (23:25)
[2018-10-13] MEDS: Acetaminophen 1,000 MG in Premix Bag 1 BAG IV SCH ×2 (03:11→09:05)
[2018-10-13] MEDS: Acetaminophen/oxyCODONE 325-5 MG Tab PO PRN ×2 (03:43→09:05)
[2018-10-13 03:52] VITALS: BP 118/61
[2018-10-13 05:42] LABS: CHLORIDE,CL 103 mmol/L (98-107); SODIUM,NA 140 mmol/L (136-145)
[2018-10-13] MEDS: Metoclopramide 10 MG/2 ML SDV IVPUSH SCH (08:06)
--- NOTE | 2018-10-13 09:07 | PCM.SURGPN ---
- General Info Date of Service: 10/13/18 Date of Surgery/Procedure: 10/12/18 POD#: 1 Post-Op Diagnosis: Abnormal uterine bleeding Functional Status: Reports: Pain Controlled, Tolerating Diet, Ambulating, Urinating - Review of Systems General: Reports: No Symptoms HEENT: Reports: No Symptoms Pulmonary: Reports: No Symptoms Cardiovascular: Reports: No Symptoms Gastrointestinal: Reports: No Symptoms Genitourinary: Reports: No Symptoms Musculoskeletal: Reports: No Symptoms Skin: Reports: No Symptoms Neurological: Reports: No Symptoms Psychiatric: Reports: No Symptoms - Patient Data Vitals - Most Recent: Last Vital Signs Temp 36.4 C 10/13/18 08:00 Pulse 83 10/13/18 08:00 Resp 16 10/13/18 08:00 BP 118/61 10/13/18 08:00 Pulse Ox 96 10/13/18 08:00 Weight - Most Recent: 70.307 kg I&O - Last 24 Hours: Intake & Output 10/12/18 10/13/18 10/13/18 22:59 06:59 14:59 Intake Total 80 1000 Output Total 50 950 Balance 30 50 Lab Results Last 24 Hrs: Laboratory Results - last 24 hr 10/12/18 10/13/18 10/13/18 Range/Units 08:03 04:55 04:55 WBC 12.12 H (4.0-11.0) K/uL RBC 3.78 L (4.30-5.90) M/uL Hgb 11.7 L (12.0-16.0) g/dL Hct 35.2 L (36.0-46.0) % MCV 93.1 (80.0-98.0) fL MCH 31.0 (27.0-32.0) pg MCHC 33.2 (31.0-37.0) g/dL RDW Std Deviation 40.1 (28.0-62.0) fl RDW Coeff of Crystal 12 (11.0-15.0) % Plt Count 264 (150-400) K/uL MPV 10.60 (7.40-12.00) fL Neut % (Auto) 76.8 (48.0-80.0) % Lymph % (Auto) 12.3 L (16.0-40.0) % [place] % (Auto) 10.8 (0.0-15.0) % Eos % (Auto) 0.0 (0.0-7.0) % Baso % (Auto) 0.1 (0.0-1.5) % Neut # (Auto) 9.3 H (1.4-5.7) K/uL Lymph # (Auto) 1.5 (0.6-2.4) K/uL [place] # (Auto) 1.3 H (0.0-0.8) K/uL Eos # (Auto) 0.0 (0.0-0.7) K/uL Baso # (Auto) 0.0 (0.0-0.1) K/uL Nucleated RBC % 0.0 /100WBC Nucleated RBCs # 0 K/uL Sodium 144 140 (136-145) mmol/L Potassium 4.1 4.0 (3.5-5.1) mmol/L Chloride 106 103 (98-107) mmol/L Carbon Dioxide 27.3 30.3 (21.0-32.0) mmol/L BUN 15 11 (7.0-18.0) mg/dL Creatinine 0.8 0.8 (0.6-1.0) mg/dL Est Cr Clr Drug Dosing 75.41 75.41 mL/min Estimated GFR (MDRD) > 60.0 > 60.0 ml/min Glucose 104 134 H (74-106) mg/dL Calcium 9.4 8.6 (8.5-10.1) mg/dL Med Orders - Current: Current Medications Lactated Ringer's (Ringers, Lactated) 1,000 mls @ 500 mls/hr IV BOLUS [facility] Acetaminophen 1,000 mg/ Premix 100 mls @ 400 mls/hr IV Q6H [facility] Last Admin: 10/13/18 03:11 Dose: 400 mls/hr Ketorolac Tromethamine (Toradol) 30 mg IVPUSH Q6H PRN PRN Reason: Pain (severe 7-10) Stop: 10/17/18 12:44 Metoclopramide HCl (Reglan) 10 mg IVPUSH Q8H [facility] Last Admin: 10/13/18 08:06 Dose: 10 mg Morphine Sulfate (Morphine) 4 mg IVPUSH Q2H PRN PRN Reason: Pain (severe 7-10) Ondansetron HCl (Zofran) 4 mg IVPUSH Q6H PRN PRN Reason: Nausea/Vomiting Oxycodone/Acetaminophen (Percocet 325-5 Mg) 1 tab PO Q4H PRN PRN Reason: Pain (moderate 4-6) Oxycodone/Acetaminophen (Percocet 325-5 Mg) 2 tab PO Q4H PRN PRN Reason: Pain (moderate 4-6) Last Admin: 10/13/18 03:43 Dose: 2 tab Promethazine HCl (Phenergan) 25 mg IM Q6H PRN PRN Reason: Nausea/Vomiting Scopolamine (Transderm-Scop) 1.5 mg TRDERM Q72H PRN PRN Reason: Nausea/Vomiting Sodium Chloride (Saline Flush) 10 ml FLUSH ASDIRECTED PRN PRN Reason: Keep Vein Open Sodium Chloride (Saline Flush) 2.5 ml FLUSH ASDIRECTED PRN PRN Reason: Keep Vein Open Sodium Chloride (Normal Saline) 10 ml IV ASDIRECTED PRN PRN Reason: IV Use Discontinued Medications Bupivacaine HCl (Sensorcaine-Mpf 0.25%) Confirm Administered Dose 20 ml .ROUTE .STK-MED ONE Stop: 10/12/18 07:49 Cefazolin Sodium/Dextrose (Ancef) Confirm Administered Dose 2 gm IV .STK-MED ONE Stop: 10/12/18 07:10 Dexamethasone (Dexamethasone) Confirm Administered Dose 20 mg .ROUTE .STK-MED ONE Stop: 10/12/18 07:20 Fentanyl (Sublimaze) Confirm Administered Dose 250 mcg .ROUTE .STK-MED ONE Stop: 10/12/18 07:11 Fentanyl (Sublimaze) 50 mcg IVPUSH Q5M PRN PRN Reason: Pain (severe 7-10) Stop: 10/12/18 14:00 Fentanyl (Sublimaze) Confirm Administered Dose 100 mcg .ROUTE .STK-MED ONE Stop: 10/12/18 11:53 Fluorescein Sodium (Ak-Fluor) Confirm Administered Dose 5 ml .ROUTE .STK-MED ONE Stop: 10/12/18 08:36 Furosemide (Lasix) Confirm Administered Dose 40 mg .ROUTE .STK-MED ONE Stop: 10/12/18 08:39 Gelatin (Gelfoam 12-7 Mm) Confirm Administered Dose 1 each TOP .STK-MED ONE Stop: 10/12/18 11:59 Glycopyrrolate (Robinul) Confirm Administered Dose 0.6 mg .ROUTE .STK-MED ONE Stop: 10/12/18 07:25 Hydromorphone HCl (Dilaudid) Confirm Administered Dose 2 mg .ROUTE .[facility]-MED ONE Stop: 10/12/18 09:53 Hydromorphone HCl (Dilaudid) Confirm Administered Dose 2 mg .ROUTE .STK-MED ONE Stop: 10/12/18 12:00 Lidocaine HCl (Xylocaine-Mpf 1%) Confirm Administered Dose 5 mls @ as directed .ROUTE .ST-MED ONE Stop: 10/12/18 07:20 Acetaminophen (Ofirmev) Confirm Administered Dose 100 mls @ as directed IV .[facility]- MED ONE Stop: 10/12/18 07:46 Sodium Chloride (Normal Saline) Confirm Administered Dose 20 mls @ as directed .ROUTE .[facility]-MED ONE Stop: 10/12/18 09:54 Acetaminophen 1,000 mg/ Premix 100 mls @ 400 mls/hr IV Q6H [facility] Last Admin: 10/12/18 15:50 Dose: 400 mls/hr Ketorolac Tromethamine (Toradol) Confirm Administered Dose 30 mg .ROUTE .ST- MED ONE Stop: 10/12/18 11:31 Ketorolac Tromethamine (Toradol) 30 mg IVPUSH ONETIME ONE Stop: 10/12/18 12:45 Last Admin: 10/12/18 15:59 Dose: Not Given Methylene Blue (Provayblue) Confirm Administered Dose 50 mg .ROUTE .[facility]-MED ONE Stop: 10/12/18 07:48 Metoclopramide HCl (Reglan) 10 mg IVPUSH Q8H [facility] Last Admin: 10/12/18 16:04 Dose: 10 mg Midazolam HCl (Versed 1 Mg/Ml) Confirm Administered Dose 2 mg .ROUTE .[facility]-MED ONE Stop: 10/12/18 07:11 Neostigmine Methylsulfate (Neostigmine) Confirm Administered Dose 5 mg .ROUTE .STK-MED ONE Stop: 10/12/18 07:25 Ondansetron HCl (Zofran) Confirm Administered Dose 4 mg .ROUTE .ST-MED ONE Stop: 10/12/18 07:20 Propofol (Diprivan 20 Ml) Confirm Administered Dose 200 mg .ROUTE .STK-MED ONE Stop: 10/12/18 07:11 Rocuronium [place] (Zemuron) Confirm Administered Dose 100 mg .ROUTE .STK-MED ONE Stop: 10/12/18 07:20 Succinylcholine Chloride (Succinylcholine Chloride) Confirm Administered Dose 200 mg .ROUTE .STK-MED ONE Stop: 10/12/18 07:20 Vasopressin (Vasopressin) Confirm Administered Dose 20 units .ROUTE .STK-MED ONE Stop: 10/12/18 09:20 - Exam Wound/Incisions: Dressing Dry and Intact General: Alert Lungs: Clear to Auscultation GI/Abdominal Exam: Normal Bowel Sounds Extremities: Normal Inspection Neurological: No New Focal Deficit Psy/Mental Status: Alert - Problem List & Annotations (1) Abnormal uterine bleeding (AUB) SNOMED Code(s): 73651050685901 Code(s): N93.9 - ABNORMAL UTERINE AND VAGINAL BLEEDING, UNSPECIFIED Status : Acute Current Visit: Yes - Problem List Review Problem List Initiated/Reviewed/Updated: Yes - My Orders Last 24 Hours: Active Orders 24 hr Category Date Time Status Patient Status [ADT] Routine ADT 10/12/18 08:50 Active Antiembolic Devices [RC] DAILY Care 10/12/18 08:51 Active Antiembolic Devices [RC] PER UNIT ROUTINE Care 10/12/18 12:45 Active Notify Provider Intake and Out [RC] ASDIRECTED Care 10/12/18 12:44 Active Notify Provider Vital Signs [RC] ASDIRECTED Care 10/12/18 12:44 Active Overnight Pulse Oximetry [RC] CONTINUOUS Care 10/12/18 14:32 Active Oxygen Therapy Adult [Oxygen Therapy] [RC] CONTINUOUS Care 10/12/18 14:32 Active Oxygen Therapy [RC] ASDIRECTED Care 10/12/18 12:44 Active RT Incentive Spirometry [RC] Q2HWA Care 10/12/18 12:44 Active Up With Assistance [RC] PER UNIT ROUTINE Care 10/12/18 12:44 Active Up ad Stefanie [RC] PER UNIT ROUTINE Care 10/12/18 12:44 Active Urinary Catheter Removal [RC] Per Unit Routine Care 10/12/18 12:44 Active Vital Signs [RC] PER UNIT ROUTINE Care 10/12/18 12:44 Active Vital Signs [RC] Q4H Care 10/12/18 08:50 Active Regular Diet [DIET] Diet 10/12/18 Dinner Active Acetaminophen [Ofirmev] 1,000 mg Med 10/12/18 22:00 Active Premix Bag 1 bag IV Q6H Acetaminophen/oxyCODONE [Percocet 325-5 MG] Med 10/12/18 12:44 Active 1 tab PO Q4H PRN Acetaminophen/oxyCODONE [Percocet 325-5 MG] Med 10/12/18 12:44 Active 2 tab PO Q4H PRN Ketorolac [Toradol] Med 10/12/18 12:44 Active 30 mg IVPUSH Q6H PRN Lactated Ringers [Ringers, Lactated] 1,000 ml Med 10/12/18 09:00 Active IV BOLUS Metoclopramide [Reglan] Med 10/13/18 00:00 Active 10 mg IVPUSH Q8H Morphine Med 10/12/18 12:44 Active 4 mg IVPUSH Q2H PRN Ondansetron [Zofran] Med 10/12/18 12:44 Active 4 mg IVPUSH Q6H PRN Promethazine [Phenergan] Med 10/12/18 12:44 Active 25 mg IM Q6H PRN Scopolamine [Transderm-Scop] Med 10/12/18 08:28 Active 1.5 mg TRDERM Q72H PRN Sodium Chloride 0.9% [Normal Saline] Med 10/12/18 08:50 Active 10 ml IV ASDIRECTED PRN Sodium Chloride 0.9% [Saline Flush] Med 10/12/18 08:50 Active 10 ml FLUSH ASDIRECTED PRN Sodium Chloride 0.9% [Saline Flush] Med 10/12/18 08:50 Active 2.5 ml FLUSH ASDIRECTED PRN Peripheral IV Discontinue [OM.PC] Routine Oth 10/12/18 12:44 Ordered Peripheral IV Insertion Adult [OM.PC] Urgent Oth 10/12/18 08:50 Ordered Pulse Oximetry Continuous Monitoring [OM.PC] Routine Ot 10/12/18 14:31 Ordered Sequential Compression Device [OM.PC] Per Unit Routine Oth 10/12/18 08:50 Ordered Sequential Compression Device [OM.PC] Per Unit Routine Oth 10/12/18 12:44 Ordered Resuscitation Status Routine Resus Stat 10/12/18 12:44 Ordered Medication Orders Lactated Ringer's (Ringers, Lactated) 1,000 mls @ 500 mls/hr IV BOLUS [facility] Acetaminophen 1,000 mg/ Premix 100 mls @ 400 mls/hr IV Q6H [facility] Last Admin: 10/13/18 03:11 Dose: 400 mls/hr Infusion: 10/12/18 21:22 Dose: 400 mls/hr Admin: 10/12/18 21:07 Dose: 400 mls/hr Ketorolac Tromethamine (Toradol) 30 mg IVPUSH Q6H PRN PRN Reason: Pain (severe 7-10) Stop: 10/17/18 12:44 Metoclopramide HCl (Reglan) 10 mg IVPUSH Q8H [facility] Last Admin: 10/13/18 08:06 Dose: 10 mg Admin: 10/12/18 23:25 Dose: 10 mg Morphine Sulfate (Morphine) 4 mg IVPUSH Q2H PRN PRN Reason: Pain (severe 7-10) Ondansetron HCl (Zofran) 4 mg IVPUSH Q6H PRN PRN Reason: Nausea/Vomiting Oxycodone/Acetaminophen (Percocet 325-5 Mg) 1 tab PO Q4H PRN PRN Reason: Pain (moderate 4-6) Oxycodone/Acetaminophen (Percocet 325-5 Mg) 2 tab PO Q4H PRN PRN Reason: Pain (moderate 4-6) Last Admin: 10/13/18 03:43 Dose: 2 tab Admin: 10/12/18 22:31 Dose: 2 tab Admin: 10/12/18 17:20 Dose: 2 tab Promethazine HCl (Phenergan) 25 mg IM Q6H PRN PRN Reason: Nausea/Vomiting Scopolamine (Transderm-Scop) 1.5 mg TRDERM Q72H PRN PRN Reason: Nausea/Vomiting Sodium Chloride (Saline Flush) 10 ml FLUSH ASDIRECTED PRN PRN Reason: Keep Vein Open Sodium Chloride (Saline Flush) 2.5 ml FLUSH ASDIRECTED PRN PRN Reason: Keep Vein Open Sodium Chloride (Normal Saline) 10 ml IV ASDIRECTED PRN PRN Reason: IV Use - Assessment Assessment (Free Text/Narrative):: 38yo s/p LAVH/BSO POD1 stable , ambulating , urinating and tolerating regular diet - Plan Plan (Free Text/Narrative):: Discharge home Pain control as needed
--- NOTE | 2018-10-14 02:44 | OR ---
SURGEON: TUNDE OSHEA DATE OF PROCEDURE: 10/12/2018 PREOPERATIVE DIAGNOSIS: A 38-year-old, para 2 with abnormal uterine bleeding. POSTOPERATIVE DIAGNOSIS: A 38-year-old, para 2 with abnormal uterine bleeding. PROCEDURE: Laparoscopic assisted vaginal hysterectomy and bilateral salpingo-oophorectomy. PRIMARY SURGEON: Tunde Oshea. SECONDARY SURGEON: Alyce Cedillo M.D. ESTIMATED BLOOD LOSS: 100 mL. IV FLUID: 1700 mL. FINDINGS: Normal size anteverted uterus. Normal right tube, and ovaries. BRIEF HISTORY: She is a 38-year-old, para 2, previous BTL, who came in complaining of abnormal uterine bleeding. She was worked up, had all workup negative. She also had premature menopause, and she has not had a period for about 10 years, so she was wondering why she was having a period. The patient was counseled about various options and she wanted to proceed with a hysterectomy and salpingo oophorectomy. She was explained the risks, benefits, and alternatives of hysterectomy and also oophorectomy. She desired to proceed. DESCRIPTION OF PROCEDURE: The patient was taken to the operating room, where general anesthesia was performed without difficulty. She was prepared and draped in the normal lithotomy position with an David stirrups. The cervix was exposed. Then she was sounded all the way to 7 cm. A normal manipulator was placed in. Then, attention was then placed to the upper side of the abdomen. A supraumbilical incision was made after injection of 0.25% Marcaine. Direct entry was done. Normal liver and gallbladder were noted. Again, in the right lower quadrant an incision was made for another port 2 fingerbreadths medial to and superior from the anterior iliac spine. This trocar was placed under direct entry. The same was done to the left lower quadrant. Then attention was paid to the uterus. There was noted some adhesions between the bladder and the lower uterine segment. The bilateral ureters were identified. The Harmonic Scalpel was used to coagulate and cut the IP all the way to the cornua of the uterus. Then, the round ligament was also transected, and the bladder flap was created carefully. Again, this was done on the left side, where the IP ligament was transected all the way to the cornua. Then, the bladder flap was made at the anterior portion of the uterus. Then, the uterine artery was coagulated, and then attention was paid to the pelvis. At this point, the cervix was grasped with the Valarie forceps. About 10 mL of vasopressin was injected circumferentially at the cervicovaginal junction The electrocautery device was used to make a circumferential dissection around the cervix at the cervicovaginal junction. Then, the posterior cul-de-sac was then entered without difficulty. Also, the anterior cul-de-sac was entered without difficulty. Then, the weighted speculum was placed inside the anterior cul-de-sac. The retractor was placed into the anterior cul-de-sac also. Then the uterosacrals and cardinal ligament was also clamped, cut and sutured ligated with 0 vicryl . Then the uterine artery was then sequentially clamped, cut and suture ligated . The uterus was then delivered. The colpotomy was then sutured in a transverse direction from superior to inferior. The uterosacrals were then suspended to the vaginal wall on the right and also on the left. Then, the was colpotomy was closed. The uterosacral stitches were then tied. Then attention was paid to the cystoscopy. Bladder was noted to be intact, and there was bilateral ureteral jets. Attention was then placed to the abdomen from a laparoscopy point of view. There was some oozing noted. Oozing was controlled with the Kleppinger device. Irrigation was done, and the hemostasis was noted. The patient was taken to the recovery room. The incision was closed with 4-0 Monocryl. The instrument and pad count were correct x2. The patient was taken to the recovery room in stable condition. JOSIE CAMPA /[id number] ALONDRA
== END 2018-10-13 10:36 | disposition home or self-care (01) ==
LOC: MW.SDS 07:44 → MW.ICU 15:01 → MW.SDS 10-13 10:36
PROVIDERS: ATTEND Obstetrics & Gynecology
DX: N95.0 Postmenopausal bleeding (principal); N83.312 Acquired atrophy of left ovary; N83.311 Acquired atrophy of right ovary; N85.8 Other specified noninflammatory disorders of uterus; J45.909 Unspecified asthma, uncomplicated; K21.9 Gastro-esophageal reflux disease without esophagitis; G43.909 Migraine, unspecified, not intractable, without status migrainosus; Z88.8 Allergy status to other drugs, medicaments and biological substances; Z87.891 Personal history of nicotine dependence; Z98.51 Tubal ligation status; Z79.899 Other long term (current) drug therapy
CPT/HCPCS: 36415; 58552; 80048; 81025; 85025; 86850; 86900; 86901; 88307; A4217; A9270; J0131; J0330; J0690; J1100; J1170; J1885; J1940; J2001; J2250; J2405; J2704; J2765; J3010; J3490; 00944

== ENCOUNTER 2019-01-28 11:22 | Emergency (ER) | payer BC ==
[2019-01-28 12:08] VITALS: BP 115/70
--- NOTE | 2019-01-28 13:51 | EDM.PDOC ---
ED HPI GENERAL MEDICAL PROBLEM - General Chief Complaint: Eye Problems Stated Complaint: LEFT SWOLLEN EYELID Time Seen by Provider: 01/28/19 13:50 Source of Information: Reports: Patient - History of Present Illness INITIAL COMMENTS - FREE TEXT/NARRATIVE: HISTORY AND PHYSICAL: History of present illness: []Angela presents with mild swelling in the left eye on the lid sclera is clear no exudates in the eye however tender in the supraorbital sinus area no fever nausea vomiting chills sweats She's had symptoms off and on over the last few generally resolving with a cold compress Review of systems: As per history of present illness and below otherwise all systems reviewed and negative. Past medical history: As per history of present illness and as reviewed below otherwise noncontributory. Surgical history: As per history of present illness and as reviewed below otherwise noncontributory. Social history: No reported history of drug or alcohol abuse. Family history: As per history of present illness and as reviewed below otherwise noncontributory. Physical exam: HEENT: Atraumatic, normocephalic, pupils reactive, negative for conjunctival pallor or scleral icterus, mucous membranes moist, throat clear, neck supple, nontender, trachea midline. Lungs: Clear to auscultation, breath sounds equal bilaterally, chest nontender. Heart: S1S2, regular, negative for clicks, rubs, or JVD. Abdomen: Soft, nondistended, nontender. Negative for masses or hepatosplenomegaly. Negative for costovertebral tenderness. Pelvis: Stable nontender. Genitourinary: Deferred. Rectal: Deferred. Extremities: Atraumatic, negative for cords or calf pain. Neurovascular unremarkable. Neuro: Awake, alert, oriented. Cranial nerves II through XII unremarkable. Cerebellum unremarkable. Motor and sensory unremarkable throughout. Exam nonfocal. Diagnostics: [] Therapeutics: cold compress Amoxicillin The counter symptomatic therapy discussed ] Impression: [] Definitive disposition and diagnosis as appropriate pending reevaluation and review of above. L eye Pain Score (Numeric/FACES): 6 - Related Data Allergies Allergy/AdvReac Type Severity Reaction Status Date / Time esomeprazole magnesium Allergy Mild Abdominal Verified 01/28/19 12:07 [From Nexium] Cramps Home Meds: Home Meds Cyanocobalamin (Vitamin B-12) [B-12 Compliance] 1,000 mcg IM Q30D 09/03/18 [ History] Estradiol [Climara] 0.05 mg TRDERM WEEKLY 09/03/18 [History] Omeprazole 40 mg PO DAILY 09/03/18 [History] Ergocalciferol (Vitamin D2) [Vitamin D2] 50,000 units PO WEEKLY 10/07/18 [ History] Multivitamin [Multivitamins] 1 tab PO DAILY 10/07/18 [History] Naproxen 1 tab PO ASDIRECTED PRN 10/07/18 [History] traMADol HCl [Tramadol HCl] 50 mg PO ASDIRECTED PRN 10/07/18 [History] Ibuprofen 800 mg PO TID PRN 7 Days #30 tablet 10/13/18 [Rx] Citalopram Hydrobromide [Celexa] 20 mg PO DAILY 01/28/19 [History] Past Medical History HEENT History: Reports: Other (See Below) Other HEENT History: TMJ Cardiovascular History: Reports: None Respiratory History: Reports: Asthma Other Respiratory History: "asthma in the past" Gastrointestinal History: Reports: GERD Genitourinary History: Reports: UTI, Recurrent [employer] History: Reports: Musculoskeletal History: Reports: Back Pain, Chronic, Neck Pain, Chronic Neurological History: Reports: Concussion, Migraines Psychiatric History: Reports: Anxiety, Depression Endocrine/Metabolic History: Reports: Osteopenia, Other (See Below) Other Endocrine/Metabolic History: hx thyroid nodule-biopsy negative Hematologic History: Reports: Anemia Immunologic History: Reports: None Oncologic (Cancer) History: Reports: None Dermatologic History: Reports: None - Infectious Disease History Infectious Disease History: Reports: Chicken Pox - Past Surgical History Head Surgeries/Procedures: Reports: None HEENT Surgical History: Reports: Adenoidectomy, Tonsillectomy Respiratory Surgical History: Reports: None GI Surgical History: Reports: Cholecystectomy, Colonoscopy, EGD, Hernia, Abdominal Female Surgical History: Reports: Section, Tubal Ligation Other Female Surgeries/Procedures: laparoscopy x2 Endocrine Surgical History: Reports: None Neurological Surgical History: Reports: None Musculoskeletal Surgical History: Reports: None Oncologic Surgical History: Reports: None Dermatological Surgical History: Reports: None Social & Family History - Family History Family Medical History: Noncontributory - Tobacco Use Smoking Status *Q: Former Smoker Used Tobacco, but Quit: Yes Month/Year Tobacco Last Used: 2013 - Caffeine Use Caffeine Use: Reports: Coffee - Recreational Drug Use Recreational Drug Use: No - Living Situation & Occupation Living situation: Reports: , with Family Occupation: Employed ED ROS GENERAL - Review of Systems Review Of Systems: See Below ED EXAM GENERAL W FULL EYE - Physical Exam Exam: See Below Course - Vital Signs Last Recorded V/S: Last Vital Signs Temp 97.8 F 01/28/19 12:04 Pulse 103 H 01/28/19 12:04 Resp 18 01/28/19 12:04 BP 115/70 01/28/19 12:04 Pulse Ox 99 01/28/19 12:04 Departure - Departure Time of Disposition: 13:51 Disposition: Home, Self-Care 01 Condition: Good Clinical Impression: Sinusitis - Discharge Information Referrals: PCP,Unknown [Primary Care Provider] - Additional Instructions: The following information is given to patients seen in the emergency department who are being discharged to home. This information is to outline your options for follow-up care. We provide all patients seen in our emergency department with a follow-up referral. The need for follow-up, as well as the timing and circumstances, are variable depending upon the specifics of your emergency department visit. If you don't have a primary care physician on staff, we will provide you with a referral. We always advise you to contact your personal physician following an emergency department visit to inform them of the circumstance of the visit and for follow-up with them and/or the need for any referrals to a consulting specialist. The emergency department will also refer you to a specialist when appropriate. This referral assures that you have the opportunity for follow-up care with a specialist. All of these measure are taken in an effort to provide you with optimal care, which includes your follow-up. Under all circumstances we always encourage you to contact your private physician who remains a resource for coordinating your care. When calling for follow-up care, please make the office aware that this follow-up is from your recent emergency room visit. If for any reason you are refused follow-up, please contact the [facility] emergency department at and asked to speak to the emergency department charge nurse.
== END 2019-01-28 14:10 | disposition home or self-care (01) ==
LOC: MW.ED 11:22
DX: J32.9 Chronic sinusitis, unspecified (principal); F41.9 Anxiety disorder, unspecified; F32.9 Major depressive disorder, single episode, unspecified; K21.9 Gastro-esophageal reflux disease without esophagitis; Z87.891 Personal history of nicotine dependence; Z79.899 Other long term (current) drug therapy
CPT/HCPCS: 99283

== ENCOUNTER 2019-02-28 16:29 | Emergency (ER) | payer BC ==
--- NOTE | 2019-02-28 17:00 | EDM.PDOC ---
ED HPI GENERAL MEDICAL PROBLEM - General Chief Complaint: Respiratory Problem Stated Complaint: SICK Time Seen by Provider: 02/28/19 16:50 Source of Information: Reports: Patient History Limitations: Reports: No Limitations - History of Present Illness INITIAL COMMENTS - FREE TEXT/NARRATIVE: HISTORY AND PHYSICAL: History of present illness: Patient is a 39-year-old female who presents to the emergency room today with complaints of sinus pressure, posterior nasal drip, cough and slight nausea. She states approximately one month ago she had a sinus infection and was treated with amoxicillin. She had similar symptoms at that time. After completing the antibiotic she had felt well. 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 Over the past few days she has noticed sinus pressure and a postnasal drip that does make her slightly nauseated. She does have a dry nonproductive cough. She states the cough is worse at nighttime when she is having to lay down Patient denies any fever, chills, headache, change in vision, syncope or near syncope. Denies any chest pain, back pain, shortness of breath. Denies any abdominal pain, vomiting, diarrhea, constipation or dysuria. Has not noted any blood in urine or stool. Patient has been eating and drinking appropriately. Review of systems: As per history of present illness and below otherwise all systems reviewed and negative. Past medical history: As per history of present illness and as reviewed below otherwise noncontributory. Surgical history: As per history of present illness and as reviewed below otherwise noncontributory. Social history: See social history for further information Family history: As per history of present illness and as reviewed below otherwise noncontributory. Physical exam: General: Well-developed and well-nourished 39-year-old female. Alert and oriented. Nontoxic appearing and in no acute distress. HEENT: Atraumatic, normocephalic, pupils equal and reactive bilaterally, negative for conjunctival pallor or scleral icterus, bilateral frontal/ maxillary sinus tenderness, mucous membranes moist, TMs normal bilaterally, throat erythematous with small pinpoint exudate noted on the right posterior oropharynx, neck supple, nontender, trachea midline. No drooling or trismus noted. No meningeal signs. No hot potato voice noted. Lungs: Clear to auscultation, breath sounds equal bilaterally, chest nontender. Dry nonproductive cough noted Heart: S1S2, regular rate and rhythm without overt murmur Abdomen: Soft, nondistended, nontender. Skin: Intact, warm, dry. No lesions or rashes noted. Extremities: Atraumatic, moves all extremities per self without difficulty or deficits, negative for cords or calf pain. Neurovascular unremarkable. Neuro: Awake, alert, oriented. Cranial nerves II through XII unremarkable. Cerebellum unremarkable. Motor and sensory unremarkable throughout. Exam nonfocal. Diagnostics: None Therapeutics: None Prescription: Augmentin Phenergan w/ Cod (#4oz) Impression: Sinusitis Plan: 1. Take the medications as prescribed. Please use Tylenol and/or Ibuprofen as needed for pain and fever management. 2. Get plenty of Rest. Encourage fluids to prevent dehydration. 3. Please follow up with your primary care provider. Return to the ED as needed as discussed. Definitive disposition and diagnosis as appropriate pending reevaluation and review of above. - Related Data Allergies Allergy/AdvReac Type Severity Reaction Status Date / Time esomeprazole magnesium Allergy Mild Abdominal Verified 01/28/19 12:07 [From Nexium] Cramps Home Meds: Home Meds Cyanocobalamin (Vitamin B-12) [B-12 Compliance] 1,000 mcg IM Q30D 09/03/18 [ History] Estradiol [Climara] 0.05 mg TRDERM WEEKLY 09/03/18 [History] Omeprazole 40 mg PO DAILY 09/03/18 [History] Ergocalciferol (Vitamin D2) [Vitamin D2] 50,000 units PO WEEKLY 10/07/18 [ History] Multivitamin [Multivitamins] 1 tab PO DAILY 10/07/18 [History] Naproxen 1 tab PO ASDIRECTED PRN 10/07/18 [History] traMADol HCl [Tramadol HCl] 50 mg PO ASDIRECTED PRN 10/07/18 [History] Ibuprofen 800 mg PO TID PRN 7 Days #30 tablet 10/13/18 [Rx] Citalopram Hydrobromide [Celexa] 20 mg PO DAILY 01/28/19 [History] Past Medical History HEENT History: Reports: Other (See Below) Other HEENT History: TMJ Cardiovascular History: Reports: None Respiratory History: Reports: Asthma Other Respiratory History: "asthma in the past" Gastrointestinal History: Reports: GERD Genitourinary History: Reports: UTI, Recurrent 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: Musculoskeletal History: Reports: Back Pain, Chronic, Neck Pain, Chronic Neurological History: Reports: Concussion, Migraines Psychiatric History: Reports: Anxiety, Depression Endocrine/Metabolic History: Reports: Osteopenia, Other (See Below) Other Endocrine/Metabolic History: hx thyroid nodule-biopsy negative Hematologic History: Reports: Anemia Immunologic History: Reports: None Oncologic (Cancer) History: Reports: None Dermatologic History: Reports: None - Infectious Disease History Infectious Disease History: Reports: Chicken Pox - Past Surgical History Head Surgeries/Procedures: Reports: None HEENT Surgical History: Reports: Adenoidectomy, Tonsillectomy Respiratory Surgical History: Reports: None GI Surgical History: Reports: Cholecystectomy, Colonoscopy, EGD, Hernia, Abdominal Female Surgical History: Reports: Section, Tubal Ligation Other Female Surgeries/Procedures: laparoscopy x2 Endocrine Surgical History: Reports: None Neurological Surgical History: Reports: None Musculoskeletal Surgical History: Reports: None Oncologic Surgical History: Reports: None Dermatological Surgical History: Reports: None Social & Family History - Family History Family Medical History: Noncontributory - Caffeine Use Caffeine Use: Reports: Coffee - Living Situation & Occupation Living situation: Reports: , with Family Occupation: Employed ED ROS GENERAL - Review of Systems Review Of Systems: ROS reveals no pertinent complaints other than HPI. ED EXAM, GENERAL - Physical Exam Exam: See Below (See dictation) Course - Vital Signs Last Recorded V/S: Last Vital Signs Temp 96.8 F 02/28/19 17:00 Pulse 87 02/28/19 17:00 Resp 20 02/28/19 17:00 BP 116/74 02/28/19 17:00 Pulse Ox 98 02/28/19 17:00 Departure - Departure Time of Disposition: 17:13 Disposition: Home, Self-Care 01 Clinical Impression: Acute recurrent sinusitis Qualifiers: Sinusitis location: maxillary Qualified Code(s): J01.01 - Acute recurrent maxillary sinusitis - Discharge Information Instructions: Sinusitis, Adult, [id number] Referrals: Evert Drew MD [Primary Care Provider] - Forms: ED Department Discharge Additional Instructions: The following information is given to patients seen in the emergency department who are being discharged to home. This information is to outline your options for follow-up care. We provide all patients seen in our emergency department with a follow-up referral. The need for follow-up, as well as the timing and circumstances, are variable depending upon the specifics of your emergency department visit. If you don't have a primary care physician on staff, we will provide you with a referral. We always advise you to contact your personal physician following an emergency department visit to inform them of the circumstance of the visit and for follow-up with them and/or the need for any referrals to a consulting specialist. The emergency department will also refer you to a specialist when appropriate. This referral assures that you have the opportunity for follow-up care with a specialist. All of these measure are taken in an effort to provide you with optimal care, which includes your follow-up. Under all circumstances we always encourage you to contact your private physician who remains a resource for coordinating your care. When calling for follow-up care, please make the office aware that this follow-up is from your recent emergency room visit. If for any reason you are refused follow-up, please contact the [facility] Emergency Department at and asked to speak to the emergency department charge nurse. [facility] [address] [place] [id number] [facility] [address] [place] [id number] 1. Take the medications as prescribed. Please use Tylenol and/or Ibuprofen as needed for pain and fever management. 2. Get plenty of Rest. Encourage fluids to prevent dehydration. 3. Please follow up with your primary care provider. Return to the ED as needed as discussed.
[2019-02-28 17:04] VITALS: BP 116/74; PULSE 87
== END 2019-02-28 17:38 | disposition home or self-care (01) ==
LOC: MW.ED 16:29
DX: J01.01 Acute recurrent maxillary sinusitis (principal); K21.9 Gastro-esophageal reflux disease without esophagitis; F41.9 Anxiety disorder, unspecified; F32.9 Major depressive disorder, single episode, unspecified; Z86.2 Personal history of diseases of the blood and blood-forming organs and certain disorders involving the immune mechanism; Z90.49 Acquired absence of other specified parts of digestive tract; Z88.8 Allergy status to other drugs, medicaments and biological substances; Z79.899 Other long term (current) drug therapy
CPT/HCPCS: 99283

== ENCOUNTER 2019-03-15 08:16 | Emergency (ER) | payer OTHER, BC ==
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
[2019-03-15 09:46] VITALS: BP 132/75; PULSE 72
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
== END 2019-03-15 10:24 | disposition home or self-care (01) ==
LOC: MW.ED 08:16
DX: M54.2 Cervicalgia (principal); G89.29 Other chronic pain; M62.838 Other muscle spasm; K21.9 Gastro-esophageal reflux disease without esophagitis; F32.9 Major depressive disorder, single episode, unspecified; Z88.8 Allergy status to other drugs, medicaments and biological substances; Z79.899 Other long term (current) drug therapy; V49.40XA Driver injured in collision with unspecified motor vehicles in traffic accident, initial encounter; Y92.410 Unspecified street and highway as the place of occurrence of the external cause
CPT/HCPCS: 72040; 72040-26; 99284-25

== ENCOUNTER 2019-03-25 16:24 | Emergency (ER) | payer SELFPAY ==
[2019-03-25] MEDS ORDERED: Aspirin 81 MG Tab.Chew PO ONE (16:38)
--- NOTE | 2019-03-25 16:40 | EDM.PDOC ---
ED HPI GENERAL MEDICAL PROBLEM - General Chief Complaint: Chest Pain Stated Complaint: CHEST PAIN Time Seen by Provider: 03/25/19 16:27 Source of Information: Reports: Patient History Limitations: Reports: No Limitations - History of Present Illness INITIAL COMMENTS - FREE TEXT/NARRATIVE: HISTORY AND PHYSICAL: History of present illness: Patient is a 39-year-old female who presents to the ED today with concern of episodes of chest pain that began off-and-on 4 hours. Patient states when the episodes occur that they are sharp in nature. Patient states she is not currently having chest pain while here in the ED. Patient states she has a history of asthma but does not currently use any inhalers at home or have any access to any inhalers. Patient states she has a history of hysterectomy, depression, and asthma but denies any other health history. Patient denies fever, chills, shortness of breath, or cough. Denies headache, neck stiff ness, change in vision, syncope, or near syncope. Denies nausea, vomiting, abdominal pain, diarrhea, constipation, or dysuria. Has not noted any blood in urine or stool. Patient has been eating and drinking appropriately. Review of systems: As per history of present illness and below otherwise all systems reviewed and negative. Past medical history: As per history of present illness and as reviewed below otherwise noncontributory. Surgical history: As per history of present illness and as reviewed below otherwise noncontributory. Social history: See social history for further information Family history: As per history of present illness and as reviewed below otherwise noncontributory. Physical exam: General: Patient is alert, oriented, and in no acute distress. Patient sitting comfortably on exam table. HEENT: Atraumatic, normocephalic, pupils equal and reactive bilaterally, negative for conjunctival pallor or scleral icterus, mucous membranes moist, TMs normal bilaterally, throat clear, neck supple, nontender, trachea midline. No drooling or trismus noted. No meningeal signs. No hot potato voice noted. Lungs: Clear to auscultation, breath sounds equal bilaterally, chest nontender. Heart: S1S2, regular rate and rhythm without overt murmur Abdomen: Soft, nondistended, nontender. Negative for masses or hepatosplenomegaly. Negative for costovertebral tenderness. Pelvis: Stable nontender. Genitourinary: Deferred. Rectal: Deferred. Skin: Intact, warm, dry. No lesions or rashes noted. Extremities: Atraumatic, negative for cords or calf pain. Neurovascular unremarkable. Neuro: Awake, alert, oriented. Cranial nerves II through XII unremarkable. Cerebellum unremarkable. Motor and sensory unremarkable throughout. Exam nonfocal. Notes: Admission for observation was offered to patient but she declines at this time. Voices understanding and is agreeable to plan of care. Denies any further questions or concerns at this time. Diagnostics: CBC, CMP, UA, EKG, chest x-ray, troponin Therapeutics: Aspirin Prescription: None Impression: Chest pain, unspecified Plan: 1. You can alternate ibuprofen and Tylenol as directed for pain and discomfort. 2. Follow-up with your primary care provider as discussed. Return to the ED as needed and as discussed. Definitive disposition and diagnosis as appropriate pending reevaluation and review of above. chest pain Pain Score (Numeric/FACES): 7 - Related Data Allergies Allergy/AdvReac Type Severity Reaction Status Date / Time esomeprazole magnesium Allergy Mild Abdominal Verified 03/25/19 16:29 [From Nexium] Cramps Home Meds: Home Meds Estradiol [Climara] 0.05 mg TRDERM WEEKLY 09/03/18 [History] Omeprazole 40 mg PO DAILY 09/03/18 [History] Multivitamin [Multivitamins] 1 tab PO DAILY 10/07/18 [History] Citalopram Hydrobromide [Celexa] 20 mg PO DAILY 01/28/19 [History] Orphenadrine [Norflex] 100 mg PO BID PRN 10 Days #20 tab 03/15/19 [Rx] Past Medical History HEENT History: Reports: Other (See Below) Other HEENT History: TMJ Cardiovascular History: Reports: None Respiratory History: Reports: Asthma Other Respiratory History: "asthma in the past" Gastrointestinal History: Reports: GERD Genitourinary History: Reports: UTI, Recurrent 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: Musculoskeletal History: Reports: Back Pain, Chronic, Neck Pain, Chronic Neurological History: Reports: Concussion, Migraines Psychiatric History: Reports: Anxiety, Depression Endocrine/Metabolic History: Reports: Osteopenia, Other (See Below) Other Endocrine/Metabolic History: hx thyroid nodule-biopsy negative Hematologic History: Reports: Anemia Immunologic History: Reports: None Oncologic (Cancer) History: Reports: None Dermatologic History: Reports: None - Infectious Disease History Infectious Disease History: Reports: Chicken Pox - Past Surgical History Head Surgeries/Procedures: Reports: None HEENT Surgical History: Reports: Adenoidectomy, Tonsillectomy Cardiovascular Surgical History: Reports: None Respiratory Surgical History: Reports: None GI Surgical History: Reports: Cholecystectomy, Colonoscopy, EGD, Hernia, Abdominal Female Surgical History: Reports: Section, Hysterectomy, Salpingo- Oophorectomy, Tubal Ligation Other Female Surgeries/Procedures: laparoscopy x2 Endocrine Surgical History: Reports: None Neurological Surgical History: Reports: None Musculoskeletal Surgical History: Reports: None Oncologic Surgical History: Reports: None Dermatological Surgical History: Reports: None Social & Family History - Family History Family Medical History: Noncontributory - Tobacco Use Smoking Status *Q: Former Smoker Used Tobacco, but Quit: Yes Month/Year Tobacco Last Used: 2013 - Caffeine Use Caffeine Use: Reports: Coffee - Recreational Drug Use Recreational Drug Use: No - Living Situation & Occupation Living situation: Reports: , with Family Occupation: Employed ED ROS GENERAL - Review of Systems Review Of Systems: ROS reveals no pertinent complaints other than HPI. ED EXAM, GENERAL - Physical Exam Exam: See Below (See dictation) Course - Vital Signs Last Recorded V/S: Last Vital Signs Temp 97.5 F 03/25/19 16:26 Pulse 69 03/25/19 17:42 Resp 18 03/25/19 17:42 BP 120/69 03/25/19 17:42 Pulse Ox 96 03/25/19 17:42 - Orders/Labs/Meds Orders: Active Orders 24 hr Category Date Time Status EKG Documentation Completion [RC] STAT Care 03/25/19 16:30 Active Labs: Laboratory Tests 03/25/19 03/25/19 03/25/19 Range/Units 17:05 17:05 17:39 WBC 8.97 (4.0-11.0) K/uL RBC 4.04 L (4.30-5.90) M/uL Hgb 12.3 (12.0-16.0) g/dL Hct 36.1 (36.0-46.0) % MCV 89.4 (80.0-98.0) fL MCH 30.4 (27.0-32.0) pg MCHC 34.1 (31.0-37.0) g/dL RDW Std Deviation 40.2 (28.0-62.0) fl RDW Coeff of Crystal 13 (11.0-15.0) % Plt Count 267 (150-400) K/uL MPV 10.50 (7.40-12.00) fL Neut % (Auto) 52.1 (48.0-80.0) % Lymph % (Auto) 32.9 (16.0-40.0) % [place] % (Auto) 12.3 (0.0-15.0) % Eos % (Auto) 2.3 (0.0-7.0) % Baso % (Auto) 0.4 (0.0-1.5) % Neut # (Auto) 4.7 (1.4-5.7) K/uL Lymph # (Auto) 3.0 H (0.6-2.4) K/uL [place] # (Auto) 1.1 H (0.0-0.8) K/uL Eos # (Auto) 0.2 (0.0-0.7) K/uL Baso # (Auto) 0.0 (0.0-0.1) K/uL Nucleated RBC % 0.0 /100WBC Nucleated RBCs # 0 K/uL Sodium 141 (136-145) mmol/L Potassium 3.5 (3.5-5.1) mmol/L Chloride 106 (98-107) mmol/L Carbon Dioxide 26.3 (21.0-32.0) mmol/L BUN 22 H (7.0-18.0) mg/dL Creatinine 0.8 (0.6-1.0) mg/dL Est Cr Clr Drug Dosing 74.67 mL/min Estimated GFR (MDRD) > 60.0 ml/min Glucose 92 (74-106) mg/dL Calcium 9.2 (8.5-10.1) mg/dL Total Bilirubin 0.8 (0.2-1.0) mg/dL AST 27 (15-37) IU/L ALT 56 (14-63) IU/L Alkaline Phosphatase 68 (46-116) U/L Troponin I < 0.050 (0.000-0.056) ng/mL Total Protein 7.1 (6.4-8.2) g/dL Albumin 3.8 (3.4-5.0) g/dL Globulin 3.3 (2.6-4.0) g/dL Albumin/Globulin Ratio 1.2 (0.9-1.6) Urine Color YELLOW Urine Appearance SLT CLOUDY Urine pH 7.0 (5.0-8.0) Ur Specific [place] 1.020 (1.001-1.035) Urine Protein NEGATIVE (NEGATIVE) mg/dL Urine Glucose (UA) NEGATIVE (NEGATIVE) mg/dL Urine Ketones NEGATIVE (NEGATIVE) mg/dL Urine Occult Blood NEGATIVE (NEGATIVE) Urine Nitrite NEGATIVE (NEGATIVE) Urine Bilirubin NEGATIVE (NEGATIVE) Urine Urobilinogen 0.2 (<2.0) EU/dL Ur Leukocyte Esterase NEGATIVE (NEGATIVE) Meds: Medications Discontinued Medications Generic Name Dose Route Start Last Admin Trade Name Ricardo PRN Reason Stop Dose Admin Aspirin 324 mg 03/25/19 16:38 03/25/19 17:15 Aspirin PO 03/25/19 16:39 324 mg ONETIME ONE Administration Departure - Departure Time of Disposition: 17:57 Disposition: Home, Self-Care 01 Clinical Impression: Chest pain Qualifiers: Chest pain type: unspecified Qualified Code(s): R07.9 - Chest pain, unspecified - Discharge Information Forms: ED Department Discharge Additional Instructions: The following information is given to patients seen in the emergency department who are being discharged to home. This information is to outline your options for follow-up care. We provide all patients seen in our emergency department with a follow-up referral. The need for follow-up, as well as the timing and circumstances, are variable depending upon the specifics of your emergency department visit. If you don't have a primary care physician on staff, we will provide you with a referral. We always advise you to contact your personal physician following an emergency department visit to inform them of the circumstance of the visit and for follow-up with them and/or the need for any referrals to a consulting specialist. The emergency department will also refer you to a specialist when appropriate. This referral assures that you have the opportunity for follow-up care with a specialist. All of these measure are taken in an effort to provide you with optimal care, which includes your follow-up. Under all circumstances we always encourage you to contact your private physician who remains a resource for coordinating your care. When calling for follow-up care, please make the office aware that this follow-up is from your recent emergency room visit. If for any reason you are refused follow-up, please contact the [facility] Emergency Department at and asked to speak to the emergency department charge nurse. [facility] [address] [place] [id number] [address] 1. You can alternate ibuprofen and Tylenol as directed for pain and discomfort. 2. Follow-up with your primary care provider as discussed. Return to the ED as needed and as discussed. - My Orders Last 24 Hours: My Active Orders 03/25/19 16:30 EKG Documentation Completion [RC] STAT - Assessment/Plan Last 24 Hours: My Active Orders 03/25/19 16:30 EKG Documentation Completion [RC] STAT
--- NOTE | 2019-03-25 17:31 | CR ---
INDICATION: Chest pain TECHNIQUE: Chest one view COMPARISON: None FINDINGS: The heart is normal in size. The pulmonary vasculature is within normal limits. The lungs are clear without focal consolidation, pleural effusion or pneumothorax. IMPRESSION: No acute process. Dictated by Francie Ren MD @ 03/25/2019 5:30:45 PM Dictated by: Francie Ren MD @ 03/25/2019 17:30:49 (Electronically Signed)
[2019-03-25 17:35] LABS: BLOOD UREA NITROGEN,BUN 22 mg/dL (7.0-18.0); CARBON DIOXIDE,CO2 26.3 mmol/L (21.0-32.0); CHLORIDE,CL 106 mmol/L (98-107); GLUCOSE RANDOM 92 mg/dL (74-106); POTASSIUM,K 3.5 mmol/L (3.5-5.1); SODIUM,NA 141 mmol/L (136-145)
[2019-03-25 17:43] VITALS: BP 120/69; PULSE 69
== END 2019-03-25 18:15 | disposition home or self-care (01) ==
LOC: MW.ED 16:24
DX: R07.9 Chest pain, unspecified (principal); F32.9 Major depressive disorder, single episode, unspecified; K21.9 Gastro-esophageal reflux disease without esophagitis; Z87.891 Personal history of nicotine dependence
CPT/HCPCS: 36415; 71045; 80053; 81003; 84484; 85025; 93005; 99285; A9270

== ENCOUNTER 2019-06-13 16:10 | Emergency (ER) | payer BC ==
--- NOTE | 2019-06-13 16:53 | EDM.PDOC ---
ED HPI GENERAL MEDICAL PROBLEM - General Chief Complaint: ENT Problem Stated Complaint: SINUS Time Seen by Provider: 06/13/19 16:22 Source of Information: Reports: Patient History Limitations: Reports: No Limitations - History of Present Illness INITIAL COMMENTS - FREE TEXT/NARRATIVE: HISTORY AND PHYSICAL: History of present illness: Patient is a 39-year-old female who presents to the ED today with concern of sinus congestion over the past 7 to 10 days. Patient states that the sinus congestion does make her ears feel "plugged. "Patient states that she has had frequent sinus infections in the past and has not had one in approximately a year. Patient states she does feel her sinuses draining down her throat and does have a sore throat from this and has had a cough. Patient also notes dysuria starting today. Patient denies any other symptoms or concerns. Patient denies fever, chills, chest pain, shortness of breath. Denies headache, neck stiff ness, change in vision, syncope, or near syncope. Denies nausea, vomiting, abdominal pain, diarrhea, constipation, or dysuria. Has not noted any blood in urine or stool. Patient has been eating and drinking appropriately. Review of systems: As per history of present illness and below otherwise all systems reviewed and negative. Past medical history: As per history of present illness and as reviewed below otherwise noncontributory. Surgical history: As per history of present illness and as reviewed below otherwise noncontributory. Social history: See social history for further information Family history: As per history of present illness and as reviewed below otherwise noncontributory. Physical exam: General: Patient is alert, oriented, and in no acute distress. Patient sitting comfortably on exam table. HEENT: Atraumatic, normocephalic, pupils equal and reactive bilaterally, negative for conjunctival pallor or scleral icterus, mucous membranes moist, TMs normal bilaterally, throat clear, neck supple, tonsils absent, uvula midline , nontender, trachea midline. No drooling or trismus noted. No meningeal signs. No hot potato voice noted. Pain with palpation of bilateral maxillary sinuses. Lungs: Clear to auscultation, breath sounds equal bilaterally, chest nontender. Heart: S1S2, regular rate and rhythm without overt murmur Abdomen: Soft, nondistended, nontender. Negative for masses or hepatosplenomegaly. Negative for costovertebral tenderness. Pelvis: Stable nontender. Genitourinary: Deferred. Rectal: Deferred. Skin: Intact, warm, dry. No lesions or rashes noted. Extremities: Atraumatic, negative for cords or calf pain. Neurovascular unremarkable. Neuro: Awake, alert, oriented. Cranial nerves II through XII unremarkable. Cerebellum unremarkable. Motor and sensory unremarkable throughout. Exam nonfocal. Notes: Discussed importance for follow-up with a primary care provider and the need for repeat labwork. Voices understanding and is agreeable to plan of care. Denies any further questions or concerns at this time. Diagnostics: CBC, CMP, UA, Strep, uhcg, CXR, urine culture, (declines influenza) Therapeutics: None Prescription: Amoxicillin Impression: Acute maxillary sinuitis Transaminitis Plan: 1. Take medication as prescribed. You can alternate ibuprofen and Tylenol as directed for pain and discomfort. 2. Follow-up with the primary care provider as discussed and for repeat labwork. Return to the ED as needed and as discussed. Definitive disposition and diagnosis as appropriate pending reevaluation and review of above. throat, sinus, right lower back Pain Score (Numeric/FACES): 6 - Related Data Allergies Allergy/AdvReac Type Severity Reaction Status Date / Time esomeprazole magnesium Allergy Mild Abdominal Verified 06/13/19 16:28 [From Nexium] Cramps Home Meds: Home Meds Omeprazole 40 mg PO DAILY 09/03/18 [History] estradioL [Climara] 0.05 mg TRDERM WEEKLY 09/03/18 [History] Multivitamin [Multivitamins] 1 tab PO DAILY 10/07/18 [History] Citalopram Hydrobromide [Celexa] 20 mg PO DAILY 01/28/19 [History] Amoxicillin 1,000 mg PO TID 5 Days #30 capsule 06/13/19 [Rx] Past Medical History HEENT History: Reports: Other (See Below) Other HEENT History: TMJ Cardiovascular History: Reports: None Respiratory History: Reports: Asthma Other Respiratory History: "asthma in the past" Gastrointestinal History: Reports: GERD Genitourinary History: Reports: UTI, Recurrent 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: Musculoskeletal History: Reports: Back Pain, Chronic, Neck Pain, Chronic Neurological History: Reports: Concussion, Migraines Psychiatric History: Reports: Anxiety, Depression Endocrine/Metabolic History: Reports: Osteopenia, Other (See Below) Other Endocrine/Metabolic History: hx thyroid nodule-biopsy negative Hematologic History: Reports: Anemia Immunologic History: Reports: None Oncologic (Cancer) History: Reports: None Dermatologic History: Reports: None - Infectious Disease History Infectious Disease History: Reports: Chicken Pox - Past Surgical History Head Surgeries/Procedures: Reports: None HEENT Surgical History: Reports: Adenoidectomy, Tonsillectomy Cardiovascular Surgical History: Reports: None Respiratory Surgical History: Reports: None GI Surgical History: Reports: Cholecystectomy, Colonoscopy, EGD, Hernia, Abdominal Female Surgical History: Reports: Section, Hysterectomy, Salpingo- Oophorectomy, Tubal Ligation Other Female Surgeries/Procedures: laparoscopy x2 Endocrine Surgical History: Reports: None Neurological Surgical History: Reports: None Musculoskeletal Surgical History: Reports: None Oncologic Surgical History: Reports: None Dermatological Surgical History: Reports: None Social & Family History - Family History Family Medical History: Noncontributory - Tobacco Use Smoking Status *Q: Never Smoker - Caffeine Use Caffeine Use: Reports: Coffee - Recreational Drug Use Recreational Drug Use: No - Living Situation & Occupation Living situation: Reports: , with Family Occupation: Employed ED ROS GENERAL - Review of Systems Review Of Systems: Comprehensive ROS is negative, except as noted in HPI. ED EXAM, GENERAL - Physical Exam Exam: See Below (see dictation) Course - Vital Signs Last Recorded V/S: Last Vital Signs Temp 98 F 06/13/19 16:24 Pulse 94 06/13/19 16:24 Resp 18 06/13/19 16:24 BP 133/72 06/13/19 16:24 Pulse Ox 98 06/13/19 16:24 - Orders/Labs/Meds Orders: Active Orders 24 hr Category Date Time Status CULTURE STREP A CONFIRMATION [RM] Stat Lab 06/13/19 16:41 Results CULTURE URINE [RM] Stat Lab 06/13/19 18:22 Ordered STREP SCRN A RAPID W CULT CONF [RM] Stat Lab 06/13/19 16:41 Results Labs: Laboratory Tests 06/13/19 06/13/19 06/13/19 Range/Units 16:51 16:51 18:02 WBC 4.60 (4.0-11.0) K/uL RBC 4.13 L (4.30-5.90) M/uL Hgb 12.5 (12.0-16.0) g/dL Hct 36.9 (36.0-46.0) % MCV 89.3 (80.0-98.0) fL MCH 30.3 (27.0-32.0) pg MCHC 33.9 (31.0-37.0) g/dL RDW Std Deviation 39.8 (28.0-62.0) fl RDW Coeff of Crystal 13 (11.0-15.0) % Plt Count 218 (150-400) K/uL MPV 10.70 (7.40-12.00) fL Add Manual Diff YES Neutrophils % (Manual) 53 (48.0-80.0) % Lymphocytes % (Manual) 22 (16.0-40.0) % Monocytes % (Manual) 24 H (0.0-15.0) % Eosinophils % (Manual) 1 (0.0-7.0) % Nucleated RBC % 0.0 /100WBC Absolute Seg Neuts 2.4 (1.4-5.7) Lymphocytes # (Manual) 1.0 (0.6-2.4) Monocytes # (Manual) 1.1 H (0.0-0.8) Eosinophils # (Manual) 0.0 (0.0-0.7) Nucleated RBCs # 0 K/uL Sodium 141 (136-145) mmol/L Potassium 3.7 (3.5-5.1) mmol/L Chloride 106 (98-107) mmol/L Carbon Dioxide 27.4 (21.0-32.0) mmol/L BUN 15 (7.0-18.0) mg/dL Creatinine 1.0 (0.6-1.0) mg/dL Est Cr Clr Drug Dosing 59.74 mL/min Estimated GFR (MDRD) > 60.0 ml/min Glucose 87 (74-106) mg/dL Calcium 8.6 (8.5-10.1) mg/dL Total Bilirubin 0.7 (0.2-1.0) mg/dL AST 62 H (15-37) IU/L ALT 91 H (14-63) IU/L Alkaline Phosphatase 73 (46-116) U/L Total Protein 7.1 (6.4-8.2) g/dL Albumin 3.6 (3.4-5.0) g/dL Globulin 3.5 (2.6-4.0) g/dL Albumin/Globulin Ratio 1.0 (0.9-1.6) Urine Color YELLOW Urine Appearance CLEAR Urine pH 6.5 (5.0-8.0) Ur Specific [place] 1.015 (1.001-1.035) Urine Protein NEGATIVE (NEGATIVE) mg/dL Urine Glucose (UA) NEGATIVE (NEGATIVE) mg/dL Urine Ketones NEGATIVE (NEGATIVE) mg/dL Urine Occult Blood TRACE-INTACT H (NEGATIVE) Urine Nitrite NEGATIVE (NEGATIVE) Urine Bilirubin NEGATIVE (NEGATIVE) Urine Urobilinogen 0.2 (<2.0) EU/dL Ur Leukocyte Esterase NEGATIVE (NEGATIVE) Urine RBC 0-4 (0-2/HPF) Urine WBC 0-2 (0-5/HPF) Ur Epithelial Cells RARE (NONE-FEW) Urine Bacteria FEW (NEGATIVE) Urine HCG, Qual (NEGATIVE) 06/13/19 Range/Units 18:02 WBC (4.0-11.0) K/uL RBC (4.30-5.90) M/uL Hgb (12.0-16.0) g/dL Hct (36.0-46.0) % MCV (80.0-98.0) fL MCH (27.0-32.0) pg MCHC (31.0-37.0) g/dL RDW Std Deviation (28.0-62.0) fl RDW Coeff of Crystal (11.0-15.0) % Plt Count (150-400) K/uL MPV (7.40-12.00) fL Add Manual Diff Neutrophils % (Manual) (48.0-80.0) % Lymphocytes % (Manual) (16.0-40.0) % Monocytes % (Manual) (0.0-15.0) % Eosinophils % (Manual) (0.0-7.0) % Nucleated RBC % /100WBC Absolute Seg Neuts (1.4-5.7) Lymphocytes # (Manual) (0.6-2.4) Monocytes # (Manual) (0.0-0.8) Eosinophils # (Manual) (0.0-0.7) Nucleated RBCs # K/uL Sodium (136-145) mmol/L Potassium (3.5-5.1) mmol/L Chloride (98-107) mmol/L Carbon Dioxide (21.0-32.0) mmol/L BUN (7.0-18.0) mg/dL Creatinine (0.6-1.0) mg/dL Est Cr Clr Drug Dosing mL/min Estimated GFR (MDRD) ml/min Glucose (74-106) mg/dL Calcium (8.5-10.1) mg/dL Total Bilirubin (0.2-1.0) mg/dL AST (15-37) IU/L ALT (14-63) IU/L Alkaline Phosphatase (46-116) U/L Total Protein (6.4-8.2) g/dL Albumin (3.4-5.0) g/dL Globulin (2.6-4.0) g/dL Albumin/Globulin Ratio (0.9-1.6) Urine Color Urine Appearance Urine pH (5.0-8.0) Ur Specific [place] (1.001-1.035) Urine Protein (NEGATIVE) mg/dL Urine Glucose (UA) (NEGATIVE) mg/dL Urine Ketones (NEGATIVE) mg/dL Urine Occult Blood (NEGATIVE) Urine Nitrite (NEGATIVE) Urine Bilirubin (NEGATIVE) Urine Urobilinogen (<2.0) EU/dL Ur Leukocyte Esterase (NEGATIVE) Urine RBC (0-2/HPF) Urine WBC (0-5/HPF) Ur Epithelial Cells (NONE-FEW) Urine Bacteria (NEGATIVE) Urine HCG, Qual NEGATIVE (NEGATIVE) Departure - Departure Time of Disposition: 18:26 Disposition: Home, Self-Care 01 Clinical Impression: Transaminitis Acute sinusitis Qualifiers: Sinusitis location: maxillary Recurrence: not specified as recurrent Qualified Code(s): J01.00 - Acute maxillary sinusitis, unspecified - Discharge Information Prescriptions: Amoxicillin 1,000 mg PO TID 5 Days #30 capsule Referrals: Evert Drew MD [Primary Care Provider] - Forms: ED Department Discharge Additional Instructions: The following information is given to patients seen in the emergency department who are being discharged to home. This information is to outline your options for follow-up care. We provide all patients seen in our emergency department with a follow-up referral. The need for follow-up, as well as the timing and circumstances, are variable depending upon the specifics of your emergency department visit. If you don't have a primary care physician on staff, we will provide you with a referral. We always advise you to contact your personal physician following an emergency department visit to inform them of the circumstance of the visit and for follow-up with them and/or the need for any referrals to a consulting specialist. The emergency department will also refer you to a specialist when appropriate. This referral assures that you have the opportunity for follow-up care with a specialist. All of these measure are taken in an effort to provide you with optimal care, which includes your follow-up. Under all circumstances we always encourage you to contact your private physician who remains a resource for coordinating your care. When calling for follow-up care, please make the office aware that this follow-up is from your recent emergency room visit. If for any reason you are refused follow-up, please contact the [facility] Emergency Department at and asked to speak to the emergency department charge nurse. [facility] [address] [place] [id number] [facility] [address] [place] [id number] 1. Take medication as prescribed. You can alternate ibuprofen and Tylenol as directed for pain and discomfort. 2. Follow-up with the primary care provider as discussed and for repeat labwork. Return to the ED as needed and as discussed. Sepsis Event Note - Evaluation Sepsis Screening Result: No Definite Risk - Focused Exam Vital Signs: Vital Signs Temp Pulse Resp BP Pulse Ox 06/13/19 16:24 98 F 94 18 133/72 98 Date Exam was Performed: 06/13/19 Time Exam was Performed: 18:26 - My Orders Last 24 Hours: My Active Orders 06/13/19 16:41 CULTURE STREP A CONFIRMATION [RM] Stat STREP SCRN A RAPID W CULT CONF [RM] Stat 06/13/19 18:22 CULTURE URINE [RM] Stat - Assessment/Plan Last 24 Hours: My Active Orders 06/13/19 16:41 CULTURE STREP A CONFIRMATION [RM] Stat STREP SCRN A RAPID W CULT CONF [RM] Stat 06/13/19 18:22 CULTURE URINE [RM] Stat
--- NOTE | 2019-06-13 17:20 | CR ---
Chest: 2 views of the chest were obtained. Comparison: Previous chest x-ray of 03/25/19. Heart size and mediastinum are normal. Lungs are clear. Bony structures shows minimal scoliosis. Surgical clips are seen within the upper abdomen. Impression: 1. Nothing acute is appreciated on 2 view chest x-ray. Diagnostic code #2 This report was dictated in [place] Standard Time
[2019-06-13 17:37] LABS: BLOOD UREA NITROGEN,BUN 15 mg/dL (7.0-18.0); CARBON DIOXIDE,CO2 27.4 mmol/L (21.0-32.0); CHLORIDE,CL 106 mmol/L (98-107); GLUCOSE RANDOM 87 mg/dL (74-106); POTASSIUM,K 3.7 mmol/L (3.5-5.1); SODIUM,NA 141 mmol/L (136-145)
[2019-06-13 18:38] VITALS: BP 133/76; PULSE 96
== END 2019-06-13 18:39 | disposition home or self-care (01) ==
LOC: MW.ED 16:10
DX: J01.00 Acute maxillary sinusitis, unspecified (principal); R74.0 Nonspecific elevation of levels of transaminase and lactic acid dehydrogenase [LDH]; J45.909 Unspecified asthma, uncomplicated; K21.9 Gastro-esophageal reflux disease without esophagitis; F41.9 Anxiety disorder, unspecified; F32.9 Major depressive disorder, single episode, unspecified; Z79.899 Other long term (current) drug therapy; Z88.8 Allergy status to other drugs, medicaments and biological substances
CPT/HCPCS: 36415; 71046; 71046-26; 80053; 81001; 81025; 85025; 87081; 87086; 87880-QW; 99283; 99283-25